=== PATIENT | female | born 1935 | race Asian ===

== ENCOUNTER 2019-10-30 19:14 | Inpatient (IN) | payer OTHER, MEDICAID ==
[~2019-10-30] VITALS: Ht 162.6 cm; Wt 51.3 kg
[2019-10-30] MEDS ORDERED: Ipratropium 0.02% Inh Soln 2.5ml UD HHN ONE (19:30)
[2019-10-30] MEDS ORDERED: Albuterol ud Inhalation HHN ONE (19:30)
--- NOTE | 2019-10-30 19:45 | NUR ---
ED Nurse Note: Recieved pt BIBA from home, here with c/o weakness x 3 days, pt now with loss of appetite and becoming weaker per family, pt is awake and oriented x 4, denies pain, pt assisted with gowning and placed on cardiac monitoring, IV line placed also and labs drawn, will resume care as ordered and continue to closely monitor.
--- NOTE | 2019-10-30 19:55 | Emergency Room Report ---
History of Present Illness General Chief Complaint: Generalized Weakness Source: Family Member, EMS Present Illness HPI Patient from home with upper respiratory symptoms. Patient transported by BLS. Oxygen saturation was low in the field. Family states that the patient began having a cough only Thursday. Yesterday she was up and ambulatory but today she is not been ambulatory and had weakness with decreased oral intake. They did not notice any fever. She has not produced any phlegm. Family denies vomiting or diarrhea. Patient has Alzheimer's and no further review of systems obtainable. History of hypertension. She usually is treated at [facility]. Allergies: Coded Allergies: No Known Allergies (Unverified , 03/14/12) Patient History Limited by: medical condition Past Medical History: see triage record Social History: Denies: smoking, alcohol use, drug use Social History Narrative At home with family Reviewed Nursing Documentation: PMH: Agreed; PSxH: Agreed Nursing Documentation-PMH Hx Hypertension: Yes Review of Systems All Other Systems: limited Physical Exam Vital Signs Date Time Temp Pulse Resp B/P (MAP) Pulse Ox O2 Delivery O2 Flow Rate FiO2 10/30/19 19:08 98.6 110 18 114/53 (73) 98 Room Air Sp02 EP Interpretation: reviewed, normal General Appearance: no apparent distress, alert, thin, other - Nonverbal, Chronically Ill Head: normocephalic Eyes: bilateral eye normal inspection, bilateral eye PERRL ENT: dry mucus membranes Neck: supple, no meningismus Respiratory: crackles, rales - Right lung Cardiovascular #1: no edema, tachycardia Cardiovascular #2: 2+ radial (L) Gastrointestinal: normal inspection, non tender, no mass, non-distended, decreased bowel sounds Genitourinary: no CVA tenderness Musculoskeletal: back normal, no calf tenderness Neurologic: alert, sensory intact, motor weakness - Diffuse, other - Nonverbal Psychiatric: depressed affect Skin: no rash, warm/dry Medical Decision Making Diagnostic Impression: Primary Impression: Right lower lobe pneumonia Qualified Codes: J18.9 - Pneumonia, unspecified organism Additional Impressions: Right upper lobe pneumonia Qualified Codes: J18.9 - Pneumonia, unspecified organism Pleural effusion, left Elevated troponin ER Course Patient presents with cough and weakness with decreased appetite. Differential includes pneumonia, influenza, orchitis, acute myocardial infarction amongst others. Patient appears dehydrated. Evaluation also needs to include sepsis. Evaluation with EKG, chest x-ray and labs. Treatment with IV hydration. Patient placed on a radiation monitor. X-ray with right infiltrate and left effusion. Blood cultures have been ordered and antibiotics ordered also 1954 SEPSIS RE-EVALUATION: Evaded troponin and minimally elevated lactic acid. Patient mentation unchanged. No hypotension. Heart rate 93 blood pressure 95. Oxygen saturation 93%. Fluid bolus and antibiotics is been ordered. Discussed with family. I, Riky Garnica MD, Performed the Sepsis Re-evaluation at 21:16. Rest of 30 ml/kg bolus ordered. Discussed with family in detail. Patient mentation unchanged. No respiratory distress. Patient admitted to telemetry. Discussed with family seriousness of illness. Laboratory Tests Test 10/30/19 20:15 White Blood Count 2.6 K/UL (4.8-10.8) L Red Blood Count 4.35 M/UL (4.20-5.40) Hemoglobin 13.7 G/DL (12.0-16.0) Hematocrit 39.5 % (37.0-47.0) Mean Corpuscular Volume 91 FL (80-99) Mean Corpuscular Hemoglobin 31.6 PG (27.0-31.0) H Mean Corpuscular Hemoglobin Concent 34.8 G/DL (32.0-36.0) Red Cell Distribution Width 10.8 % (11.6-14.8) L Platelet Count 199 K/UL (150-450) Mean Platelet Volume 5.5 FL (6.5-10.1) L Neutrophils (%) (Auto) % (45.0-75.0) Lymphocytes (%) (Auto) % (20.0-45.0) Monocytes (%) (Auto) % (1.0-10.0) Eosinophils (%) (Auto) % (0.0-3.0) Basophils (%) (Auto) % (0.0-2.0) Differential Total Cells Counted 100 Neutrophils % (Manual) 70 % (45-75) Lymphocytes % (Manual) 26 % (20-45) Monocytes % (Manual) 4 % (1-10) Eosinophils % (Manual) 0 % (0-3) Basophils % (Manual) 0 % (0-2) Band Neutrophils 0 % (0-8) Platelet Estimate Adequate Platelet Morphology Normal Prothrombin Time 10.0 SEC (9.30-11.50) Prothrombin Time INR 0.9 (0.9-1.1) Sodium Level 136 MMOL/L (136-145) Potassium Level 3.3 MMOL/L (3.5-5.1) L Chloride Level 100 MMOL/L (98-107) Carbon Dioxide Level 26 MMOL/L (21-32) Anion Gap 10 mmol/L (5-15) Blood Urea Nitrogen 30 mg/dL (7-18) H Creatinine 1.1 MG/DL (0.55-1.30) Estimate Glomerular Filtration Rate mL/min (>60) Glucose Level 152 MG/DL (74-106) H Lactic Acid Level 2.60 mmol/L (0.4-2.0) H Calcium Level 9.4 MG/DL (8.5-10.1) Total Bilirubin 0.7 MG/DL (0.2-1.0) Aspartate Amino Transferase (AST) 37 U/L (15-37) Alanine Aminotransferase (ALT) 21 U/L (12-78) Alkaline Phosphatase 65 U/L (46-116) Total Creatine Kinase 596 U/L (26-308) H Troponin I 0.074 ng/mL (0.000-0.056) Pro-B-Type Natriuretic Peptide 742 pg/mL (0-125) H Total Protein 7.2 G/DL (6.4-8.2) Albumin 3.0 G/DL (3.4-5.0) L Globulin 4.2 g/dL Albumin/Globulin Ratio 0.7 (1.0-2.7) L Lipase 47 U/L (73-393) L EKG Diagnostic Results Rate: normal Rhythm: NSR ST Segments: no acute changes ASA given to the pt in ED: Yes Rhythm Strip Diag. Results EP Interpretation: yes Rhythm: NSR, no PVC's, no ectopy Chest X-Ray Diagnostic Results Chest X-Ray Diagnostic Results : Chest X-Ray Ordered: Yes # of Views/Limited/Complete: 1 View Indication: Other EP Interpretation: Yes Interpretation: no pneumothorax, other - Right lung infiltrates upper and lower lobe, left effusion Impression: Other Electronically Signed by: Electronically signed by Riky Garnica MD Last Vital Signs Date Time Temp Pulse Resp B/P (MAP) Pulse Ox O2 Delivery O2 Flow Rate FiO2 10/30/19 20:15 97 27 98 21 89 22 91 10/30/19 19:08 98.6 114/53 (73) Room Air Status: improved Disposition: ADMITTED INPATIENT Condition: Serious Riky Garnica MD Oct 30, 2019 19:55
[2019-10-30] MEDS ORDERED: Piperacillin/Tazobactam 3.375 GM in NS 110 ML IVPB ONE (20:00)
[2019-10-30] MEDS ORDERED: Azithromycin 500 MG in D5W 275 ML IVPB ONE (20:00)
[2019-10-30 20:30] VITALS: BP 119/54
[2019-10-30 20:52] LABS: HEMATOCRIT 39.5 % (37.0-47.0); HEMOGLOBIN 13.7 G/DL (12.0-16.0); MEAN CORPUSCULAR VOLUME 91 FL (80-99); PLATELET COUNT 199 K/UL (150-450); RED BLOOD COUNT 4.35 M/UL (4.20-5.40); RED CELL DISTRIBUTION WIDTH 10.8 % (11.6-14.8); WHITE BLOOD COUNT 2.6 K/UL (4.8-10.8)
[2019-10-30 20:55] LABS: INR 0.9 (0.9-1.1)
[2019-10-30 20:57] LABS: ANION GAP 10 mmol/L (5-15); BLOOD UREA NITROGEN 30 mg/dL (7-18); CALCIUM 9.4 MG/DL (8.5-10.1); CARBON DIOXIDE 26 MMOL/L (21-32); CHLORIDE 100 MMOL/L (98-107); CREATININE 1.1 MG/DL (0.55-1.30); POTASSIUM 3.3 MMOL/L (3.5-5.1); SODIUM 136 MMOL/L (136-145)
[2019-10-30 21:09] LABS: ALANINE AMINOTRANSFERASE 21 U/L (12-78); ALBUMIN/GLOBULIN RATIO 0.7 (1.0-2.7); ALKALINE PHOSPHATASE 65 U/L (46-116); ASPARTATE AMINO TRANSFERASE 37 U/L (15-37); BILIRUBIN,TOTAL 0.7 MG/DL (0.2-1.0); CREATINE KINASE 596 U/L (26-308)
--- NOTE | 2019-10-30 22:00 | NUR ---
ED Nurse Note: Pt continues to rest quietly on gurney, awake and alert, recieving IV fluids and ABX as ordered, no s/s of adverse reaction noted and pt is tolerating well, pt denies pain, no cp, no sob or labored breathing, family at bedside, skin is intact as noted assisting pt with bedpan use, will continue to monitor and resume care as ordered.
[2019-10-30 22:40] VITALS: BP 123/48
[2019-10-30] MEDS ORDERED: Acetaminophen 650 MG SUPP RECTAL PRN ×2 (22:45)
[2019-10-30] MEDS ORDERED: Miralax 17gm pkt ORAL PRN (22:45)
[2019-10-30] MEDS ORDERED: Albuterol/Ipratropium 3ml neb HHN PRN (22:45)
[2019-10-31] VITALS (7 sets, daily range): BP systolic 124–144; BP diastolic 46–71
--- NOTE | 2019-10-31 | NUR ---
ED Nurse Note: Pt resting quietly, no changes or increased distress, will continue to closely monitor.
[2019-10-31 02:22] LABS: APPEARANCE,URINE CLEAR; BILIRUBIN, URINE NEGATIVE (NEGATIVE); COLOR,URINE PALE YELLOW; GLUCOSE, URINE (UA) NEGATIVE (NEGATIVE); KETONES,URINE NEGATIVE (NEGATIVE); LEUKOCYTE ESTERASE ,URINE NEGATIVE (NEGATIVE); NITRITE,URINE POSITIVE (NEGATIVE); PH,URINE 5 (4.5-8.0); PROTEIN,URINE 2+ (NEGATIVE); UROBILINOGEN,URINE NORMAL MG/DL (0.0-1.0)
--- NOTE | 2019-10-31 03:00 | NUR ---
ED Nurse Note: Pt sleeping, on monitoring, o2 sat=98%, no sob or labored breathing, IV site patent, no changes or distress noted.
--- NOTE | 2019-10-31 07:00 | NUR ---
ED Nurse Note:. Pt continues to rest quietly, no changes or distress noted, IV site patent, on monitoring, shift report given to oncoming nurse, nad noted.
--- NOTE | 2019-10-31 07:05 | NUR ---
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
--- NOTE | 2019-10-31 08:49 | History and Physical ---
History of Present Illness General Date patient seen: Oct 31, 2019 Reason for Hospitalization: Generalized Weakness Present Illness HPI Patient is a 84-year-old female with history of Alzheimer's dementia, lives at home with her children who who was brought in for upper respiratory symptoms by BLS. Reportedly low oxygen saturations in the field. Patient is a poor historian most information was obtained from review of medical chart, ED physician notes, and in speaking with her daughter Charleen. Per family member patient was exposed to sick family members who had cough and fevers 3 to 4 days prior to admission. Per daughter patient started having a cough 2 days prior to admission. Got progressively weaker, nonambulatory and with reduced oral intake. Patient has a walker and wheelchair at home however safety has become an issue where they are going to install bed rails so she does not fall from her bed. Family denies any fever at home. No phlegm. Patient did not complain of any abdominal pain, nausea or vomiting. Family states that the patient began having a cough only Thursday. Yesterday she was up and ambulatory but today she is not been ambulatory and had weakness with decreased oral intake. They did not notice any fever. She has not produced any phlegm. Past medical and surgical history: Hypertension and Alzheimer's Social history: Lives with children, no history of alcohol smoking or illicit drug use Family history: Unable to obtain PCP: Dr. Elvis Vidales at [facility] ROS: Unable to obtain due to mental status ED course: EKG, chest x-ray and labs. Treatment with IV hydration. Patient placed on a service captain. X-ray with right infiltrate and rib fractures. Blood cultures ordered and antibiotics ordered SEPSIS RE-EVALUATION: Evaded troponin and minimally elevated lactic acid. Patient mentation unchanged. No hypotension.. Oxygen saturation 93%. Fluid bolus and antibiotics ordered. Sepsis Re-evaluation at 21:16. Rest of 30 ml/kg bolus ordered. Allergies: Coded Allergies: No Known Allergies (Unverified , 03/14/12) Medication History Unable to Obtain Active Prescriptions or Reported Meds Patient History Healthcare decision maker Resuscitation status Advanced Directive on File Review of Systems ROS Narrative limited due to dementia Physical Exam Physical Exam Narrative General Appearance: no apparent distress, alert, thin Head: normocephalic Eyes: bilateral eye normal inspection, bilateral eye PERRL ENT: dry mucus membranes Neck: supple, no meningismus Respiratory: crackles, rales - Right lung Cardiovascular: no edema, tachycardia, no m/r/g Gastrointestinal: normal inspection, non tender, no mass, non-distended, decreased bowel sounds Genitourinary: no CVA tenderness Musculoskeletal: back normal, no calf tenderness Neurologic: alert and oriented to self only, sensory intact, motor weakness - Diffuse Psychiatric: depressed affect Skin: no rash, warm/dry Last 24 Hour Vital Signs Date Time Temp Pulse Resp B/P (MAP) Pulse Ox O2 Delivery O2 Flow Rate FiO2 10/31/19 00:00 98.3 88 18 126/46 98 Room Air 21 10/30/19 22:40 98.6 83 21 123/48 96 Room Air 21 10/30/19 20:30 98.6 91 24 119/54 98 Room Air 21 10/30/19 20:15 97 27 98 21 89 22 91 10/30/19 19:35 110 18 Room Air 10/30/19 19:08 98.6 110 18 114/53 (73) 98 Room Air Laboratory Tests Test 10/30/19 20:15 10/31/19 00:45 10/31/19 01:40 White Blood Count 2.6 K/UL (4.8-10.8) L Red Blood Count 4.35 M/UL (4.20-5.40) Hemoglobin 13.7 G/DL (12.0-16.0) Hematocrit 39.5 % (37.0-47.0) Mean Corpuscular Volume 91 FL (80-99) Mean Corpuscular Hemoglobin 31.6 PG (27.0-31.0) H Mean Corpuscular Hemoglobin Concent 34.8 G/DL (32.0-36.0) Red Cell Distribution Width 10.8 % (11.6-14.8) L Platelet Count 199 K/UL (150-450) Mean Platelet Volume 5.5 FL (6.5-10.1) L Neutrophils (%) (Auto) % (45.0-75.0) Lymphocytes (%) (Auto) % (20.0-45.0) Monocytes (%) (Auto) % (1.0-10.0) Eosinophils (%) (Auto) % (0.0-3.0) Basophils (%) (Auto) % (0.0-2.0) Differential Total Cells Counted 100 Neutrophils % (Manual) 70 % (45-75) Lymphocytes % (Manual) 26 % (20-45) Monocytes % (Manual) 4 % (1-10) Eosinophils % (Manual) 0 % (0-3) Basophils % (Manual) 0 % (0-2) Band Neutrophils 0 % (0-8) Platelet Estimate Adequate Platelet Morphology Normal Prothrombin Time 10.0 SEC (9.30-11.50) Prothromb Time International Ratio 0.9 (0.9-1.1) Sodium Level 136 MMOL/L (136-145) Potassium Level 3.3 MMOL/L (3.5-5.1) L Chloride Level 100 MMOL/L (98-107) Carbon Dioxide Level 26 MMOL/L (21-32) Anion Gap 10 mmol/L (5-15) Blood Urea Nitrogen 30 mg/dL (7-18) H Creatinine 1.1 MG/DL (0.55-1.30) Estimat Glomerular Filtration Rate mL/min (>60) Glucose Level 152 MG/DL (74-106) H Lactic Acid Level 2.60 mmol/L (0.4-2.0) H 2.30 mmol/L (0.66-2.22) H Calcium Level 9.4 MG/DL (8.5-10.1) Total Bilirubin 0.7 MG/DL (0.2-1.0) Aspartate Amino Transf (AST/SGOT) 37 U/L (15-37) Alanine Aminotransferase (ALT/SGPT) 21 U/L (12-78) Alkaline Phosphatase 65 U/L (46-116) Total Creatine Kinase 596 U/L (26-308) H Troponin I 0.074 ng/mL (0.000-0.056) Pro-B-Type Natriuretic Peptide 742 pg/mL (0-125) H Total Protein 7.2 G/DL (6.4-8.2) Albumin 3.0 G/DL (3.4-5.0) L Globulin 4.2 g/dL Albumin/Globulin Ratio 0.7 (1.0-2.7) L Lipase 47 U/L (73-393) L Urine Color Pale yellow Urine Appearance Clear Urine pH 5 (4.5-8.0) Urine Specific [place] 1.015 (1.005-1.035) Urine Protein 2+ (NEGATIVE) H Urine Glucose (UA) Negative (NEGATIVE) Urine Ketones Negative (NEGATIVE) Urine Blood 2+ (NEGATIVE) H Urine Nitrite Positive (NEGATIVE) H Urine Bilirubin Negative (NEGATIVE) Urine Urobilinogen Normal MG/DL (0.0-1.0) Urine Leukocyte Esterase Negative (NEGATIVE) Urine RBC 2-4 /HPF (0 - 2) H Urine WBC 0-2 /HPF (0 - 2) Urine Squamous Epithelial Cells Moderate /LPF (NONE/OCC) H Urine Bacteria Few /HPF (NONE) Height (Feet): 5 Height (Inches): 4.00 Weight (Pounds): 150 Medications Current Medications Medications (Trade) Dose Ordered Sig/Khang Route PRN Reason Start Time Stop Time Status Last Admin Dose Admin Acetaminophen (Tylenol) 650 mg Q4H PRN ORAL Mild Pain (Pain Scale 1-3) 10/30/19 22:45 11/29/19 22:44 Acetaminophen (Tylenol) 650 mg Q4H PRN ORAL fever 10/30/19 22:45 11/29/19 22:44 Acetaminophen (Tylenol) 650 mg Q4H PRN RECTAL Mild Pain (Pain Scale 1-3) 10/30/19 22:45 11/29/19 22:44 Acetaminophen (Tylenol) 650 mg Q4H PRN RECTAL fever 10/30/19 22:45 11/29/19 22:44 Albuterol/ Ipratropium (Albuterol/ Ipratropium) 3 ml EVERY 6 HOURS PRN HHN Shortness of Breath 10/30/19 22:45 11/04/19 22:44 Azithromycin 500 mg/Sodium Chloride 275 ml @ 275 mls/hr DAILY IV 10/31/19 09:00 11/07/19 08:59 UNV Ceftriaxone Sodium 1 gm/ Sodium Chloride 55 ml @ 110 mls/hr Q24HRS IVPB 10/31/19 09:00 11/07/19 08:59 Dextrose (Dextrose 50%) 25 ml Q30M PRN IV Hypoglycemia 10/30/19 22:45 11/29/19 22:44 Dextrose (Dextrose 50%) 50 ml Q30M PRN IV Hypoglycemia 10/30/19 22:45 11/29/19 22:44 Docusate Sodium (Colace) 100 mg EVERY 12 HOURS ORAL 10/31/19 09:00 11/30/19 08:59 Heparin Sodium (Porcine) (Heparin 5000 units/ml) 5,000 units EVERY 12 HOURS SUBQ 10/31/19 09:00 11/30/19 08:59 Ondansetron HCl (Zofran) 4 mg Q6H PRN IVP Nausea & Vomiting 10/30/19 22:45 11/29/19 22:44 Polyethylene Glycol (Miralax) 17 gm DAILYPRN PRN ORAL Constipation 10/30/19 22:45 11/29/19 22:44 Sodium Chloride 1,000 ml @ 300 mls/hr Q3H20M IV 10/30/19 19:30 11/29/19 19:29 10/31/19 01:18 Objective Narrative EKG is personally interpreted by me: Normal sinus rhythm, no acute ST-T changes Chest x-ray as interpreted by radiology: Right lung pneumonia and multiple rib fractures. Could also be right lung contusion. Assessment/Plan Problem List: (1) Sepsis ICD Codes: A41.9 - Sepsis, unspecified organism SNOMED: 41982747 (2) Pneumonia involving right lung ICD Codes: J18.9 - Pneumonia, unspecified organism SNOMED: 717774782 (3) Rhabdomyolysis ICD Codes: M62.82 - Rhabdomyolysis SNOMED: 724776445 (4) Ribs, multiple fractures ICD Codes: S22.49XA - Multiple fractures of ribs, unspecified side, initial encounter for closed fracture SNOMED: 7148996 (5) VIOLET (acute kidney injury) ICD Codes: N17.9 - Acute kidney failure, unspecified SNOMED: 3368259, 64081122 (6) Leukopenia ICD Codes: D72.819 - Decreased white blood cell count, unspecified SNOMED: 60136664, 256630201 (7) Hypokalemia ICD Codes: E87.6 - Hypokalemia SNOMED: 45970238 (8) Elevated troponin ICD Codes: R79.89 - Other specified abnormal findings of blood chemistry SNOMED: 889526397, 992815158, 924311164 Status: stable Assessment/Plan: 84-year-old female with history of Alzheimer's dementia presents from home with cough and respiratory illness. She was found to have sepsis secondary to community-acquired pneumonia versus UTI, although UA is not impressive. #Sepsis secondary to immune acquired pneumonia versus UTI Admit to telemetry IV ceftriaxone, azithromycin, add Flagyl for anaerobic coverage IV NS at 100 mL/h Obtain nasal swab to rule out influenza A/B Follow-up blood cultures Tylenol for fever ID consult, recs appreciated Pulmonary consult with Dr. Eddie Cardoso #VIOLET, prerenal azotemia Monitor renal function after hydration, avoid nephrotoxic medications. Renal consult if creatinine does not improve #Mild rhabdomyolysis Continue IV hydration. Trend CK #Elevated troponin, no reported chest pain no acute ST-T changes on EKG. Likely demand ischemia Continue aspirin Hold beta-blockers due to borderline BP Cardiology consult, Dr. nair #Hypokalemia Placed on potassium #Multiple rib fractures Pain control VTE prophylaxis: Heparin subcu GI prophylaxis: None indicated CODE STATUS: Full code. This was discussed at length with daughter on the phone. Basically they would want her mom to be full code, attempt resuscitation however if she would not have a meaningful chance of survival to withdraw care. She will come in and fill out a POLST I spent 72 minutes on this encounter. Greater than 50% spent on counseling care portion. Plan of care discussed with consultants, RN and patient's daughter Mojgan. Time of note may not reflect time of encounter Moy St M.D. Oct 31, 2019 08:49
[2019-10-31] MEDS: cefTRIAXone 1 GM in NS 55 ML IVPB SCH (09:32)
[2019-10-31] MEDS: Heparin 5000 units/ml inj SUBQ SCH ×2 (09:36→21:07)
[2019-10-31] MEDS: Docusate 100mg cap ORAL SCH ×2 (09:38→21:06)
--- NOTE | 2019-10-31 11:48 | NUR ---
ED Nurse Note: Report given to Jonnathan BANSAL
--- NOTE | 2019-10-31 11:58 | Diagnostic Imaging Report ---
Indication: Cough Comparison: 03/15/2012 A single view chest radiograph was obtained. Findings: Patchy infiltrates noted in the right lung. Heart is enlarged. There is a suggestion of multiple rib fractures on the right. Please correlate clinically. Aorta is moderately calcified and ectatic. Bones are osteoporotic. IMPRESSION: Suspected right pulmonary infiltrate. Lung contusion is also in the differential if there is been recent trauma. Multiple rib fractures on the right, age-indeterminate on this examination. Cardiomegaly Atherosclerotic vascular disease
--- NOTE | 2019-10-31 12:30 | NUR ---
NURSE NOTES: The patient is lying on the bed without acute distress or shortness of breath. The patient's belongings checked with the patient and signed by two nurses. Medical, surgical, allergy, and social history taken from the patient and son at the bedside. Admitting EKG strip obtained from ER. The patient denies of routine medication intake. Per patient and son, the patient does not have POLST or advance directive. The patient's bed in the lowest position, call light in reach, and fall and aspiration precaution reinforced. IV site intact and patent. The patient's skin is intact. Initial vital signs taken and reported to the primary physician. Will obtain admission order from the primary physician. Will continue plan of care.
[2019-10-31 13:11] LABS: BASOPHILS % (AUTO) 0.5 % (0.0-2.0); HEMATOCRIT 36.1 % (37.0-47.0); HEMOGLOBIN 12.6 G/DL (12.0-16.0); LYMPHOCYTES % (AUTO) 11.3 % (20.0-45.0); MEAN CORPUSCULAR VOLUME 92 FL (80-99); MONOCYTES % (AUTO) 3.3 % (1.0-10.0); NEUTROPHILS % (AUTO) 84.8 % (45.0-75.0); PLATELET COUNT 188 K/UL (150-450); RED BLOOD COUNT 3.91 M/UL (4.20-5.40); RED CELL DISTRIBUTION WIDTH 11.2 % (11.6-14.8); WHITE BLOOD COUNT 9.5 K/UL (4.8-10.8)
[2019-10-31] MEDS ORDERED: Hydromorphone 0.5mg/0.5ml inj IVP PRN (13:30)
[2019-10-31] MEDS ORDERED: HYDROmorphone 1mg/NS 50ml IVPB 50 ML IVPB PRN (13:30)
[2019-10-31] MEDS ORDERED: Ipratropium 0.02% Inh Soln 2.5ml UD HHN PRN (13:30)
--- NOTE | 2019-10-31 13:30 | NUR ---
NURSE NOTES: Notified Dr. St regarding abnormal lab including potassium, urinalysis, lactic acid, and elevated CK level. Will continue plan of care. Notified Dr. Fraga regarding elevated and uptrend of Troponin from 0.[address] Fraga ordered medication for control. Will closely monitor the patient.
[2019-10-31 13:36] LABS: ANION GAP 6 mmol/L (5-15); BLOOD UREA NITROGEN 14 mg/dL (7-18); CARBON DIOXIDE 28 MMOL/L (21-32); CHLORIDE 109 MMOL/L (98-107); CREATININE 0.7 MG/DL (0.55-1.30); POTASSIUM 3.4 MMOL/L (3.5-5.1); SODIUM 143 MMOL/L (136-145)
--- NOTE | 2019-10-31 13:41 | Infectious Diseases Prog Note ---
Assessment/Plan Assessment/Plan Full consult dictated: A) 1) cap, sepsis, elevated lactic acid, leukopenia 2) pmh noted 3) allergies - nkda P) 1) rocephin, flagyl, azithromycin 2) check cultures, labs and chest x-ray 3) will f/u 4) thank you Subjective Allergies: Coded Allergies: No Known Allergies (Unverified , 03/14/12) Objective Vital Signs Last 24 Hour Vital Signs Date Time Temp Pulse Resp B/P (MAP) Pulse Ox O2 Delivery O2 Flow Rate FiO2 10/31/19 12:33 Room Air 10/31/19 11:10 98.0 87 20 128/71 98 Nasal Cannula 10/31/19 09:15 98.2 83 18 124/68 97 Nasal Cannula 10/31/19 07:20 98.2 84 19 127/64 97 Nasal Cannula 10/31/19 00:00 98.3 88 18 126/46 98 Room Air 21 10/30/19 22:40 98.6 83 21 123/48 96 Room Air 21 10/30/19 20:30 98.6 91 24 119/54 98 Room Air 21 10/30/19 20:15 97 27 98 21 89 22 91 10/30/19 19:35 110 18 Room Air 10/30/19 19:08 98.6 110 18 114/53 (73) 98 Room Air Height (Feet): 5 Height (Inches): 4.00 Weight (Pounds): 150 Laboratory Tests Test 10/30/19 20:15 10/31/19 00:45 10/31/19 01:40 10/31/19 12:55 White Blood Count 2.6 K/UL (4.8-10.8) L 9.5 K/UL (4.8-10.8) # Red Blood Count 4.35 M/UL (4.20-5.40) 3.91 M/UL (4.20-5.40) L Hemoglobin 13.7 G/DL (12.0-16.0) 12.6 G/DL (12.0-16.0) Hematocrit 39.5 % (37.0-47.0) 36.1 % (37.0-47.0) L Mean Corpuscular Volume 91 FL (80-99) 92 FL (80-99) Mean Corpuscular Hemoglobin 31.6 PG (27.0-31.0) H 32.3 PG (27.0-31.0) H Mean Corpuscular Hemoglobin Concent 34.8 G/DL (32.0-36.0) 35.0 G/DL (32.0-36.0) Red Cell Distribution Width 10.8 % (11.6-14.8) L 11.2 % (11.6-14.8) L Platelet Count 199 K/UL (150-450) 188 K/UL (150-450) Mean Platelet Volume 5.5 FL (6.5-10.1) L 5.8 FL (6.5-10.1) L Neutrophils (%) (Auto) % (45.0-75.0) 84.8 % (45.0-75.0) H Lymphocytes (%) (Auto) % (20.0-45.0) 11.3 % (20.0-45.0) L Monocytes (%) (Auto) % (1.0-10.0) 3.3 % (1.0-10.0) Eosinophils (%) (Auto) % (0.0-3.0) 0.0 % (0.0-3.0) Basophils (%) (Auto) % (0.0-2.0) 0.5 % (0.0-2.0) Differential Total Cells Counted 100 Neutrophils % (Manual) 70 % (45-75) Lymphocytes % (Manual) 26 % (20-45) Monocytes % (Manual) 4 % (1-10) Eosinophils % (Manual) 0 % (0-3) Basophils % (Manual) 0 % (0-2) Band Neutrophils 0 % (0-8) Platelet Estimate Adequate Platelet Morphology Normal Prothrombin Time 10.0 SEC (9.30-11.50) Prothromb Time International Ratio 0.9 (0.9-1.1) Sodium Level 136 MMOL/L (136-145) Pending Potassium Level 3.3 MMOL/L (3.5-5.1) L Pending Chloride Level 100 MMOL/L (98-107) Pending Carbon Dioxide Level 26 MMOL/L (21-32) Pending Anion Gap 10 mmol/L (5-15) Blood Urea Nitrogen 30 mg/dL (7-18) H Pending Creatinine 1.1 MG/DL (0.55-1.30) Pending Estimat Glomerular Filtration Rate mL/min (>60) Pending Glucose Level 152 MG/DL (74-106) H Pending Lactic Acid Level 2.60 mmol/L (0.4-2.0) H 2.30 mmol/L (0.66-2.22) H Pending Calcium Level 9.4 MG/DL (8.5-10.1) Pending Total Bilirubin 0.7 MG/DL (0.2-1.0) Aspartate Amino Transf (AST/SGOT) 37 U/L (15-37) Alanine Aminotransferase (ALT/SGPT) 21 U/L (12-78) Alkaline Phosphatase 65 U/L (46-116) Total Creatine Kinase 596 U/L (26-308) H Troponin I 0.074 ng/mL (0.000-0.056) Pending Pro-B-Type Natriuretic Peptide 742 pg/mL (0-125) H Total Protein 7.2 G/DL (6.4-8.2) Albumin 3.0 G/DL (3.4-5.0) L Globulin 4.2 g/dL Albumin/Globulin Ratio 0.7 (1.0-2.7) L Lipase 47 U/L (73-393) L Urine Color Pale yellow Urine Appearance Clear Urine pH 5 (4.5-8.0) Urine Specific [place] 1.015 (1.005-1.035) Urine Protein 2+ (NEGATIVE) H Urine Glucose (UA) Negative (NEGATIVE) Urine Ketones Negative (NEGATIVE) Urine Blood 2+ (NEGATIVE) H Urine Nitrite Positive (NEGATIVE) H Urine Bilirubin Negative (NEGATIVE) Urine Urobilinogen Normal MG/DL (0.0-1.0) Urine Leukocyte Esterase Negative (NEGATIVE) Urine RBC 2-4 /HPF (0 - 2) H Urine WBC 0-2 /HPF (0 - 2) Urine Squamous Epithelial Cells Moderate /LPF (NONE/OCC) H Urine Bacteria Few /HPF (NONE) Magnesium Level Pending Current Medications Medications (Trade) Dose Ordered Sig/Khang Route PRN Reason Start Time Stop Time Status Last Admin Dose Admin Acetaminophen (Tylenol) 650 mg Q4H PRN ORAL Mild Pain (Pain Scale 1-3) 10/30/19 22:45 11/29/19 22:44 Acetaminophen (Tylenol) 650 mg Q4H PRN ORAL fever 10/30/19 22:45 11/29/19 22:44 Acetaminophen (Tylenol) 650 mg Q4H PRN RECTAL Mild Pain (Pain Scale 1-3) 10/30/19 22:45 11/29/19 22:44 Acetaminophen (Tylenol) 650 mg Q4H PRN RECTAL fever 10/30/19 22:45 11/29/19 22:44 Azithromycin 500 mg/Sodium Chloride 275 ml @ 275 mls/hr Q24H IV 10/31/19 23:00 11/07/19 22:59 Ceftriaxone Sodium 1 gm/ Sodium Chloride 55 ml @ 110 mls/hr Q24HRS IVPB 10/31/19 09:00 11/07/19 08:59 10/31/19 09:32 Dextrose (Dextrose 50%) 25 ml Q30M PRN IV Hypoglycemia 10/30/19 22:45 11/29/19 22:44 Dextrose (Dextrose 50%) 25 ml Q30M PRN IV Hypoglycemia 10/31/19 13:30 11/30/19 13:29 UNV Dextrose (Dextrose 50%) 50 ml Q30M PRN IV Hypoglycemia 10/30/19 22:45 11/29/19 22:44 Dextrose (Dextrose 50%) 50 ml Q30M PRN IV Hypoglycemia 10/31/19 13:30 11/30/19 13:29 UNV Docusate Sodium (Colace) 100 mg EVERY 12 HOURS ORAL 10/31/19 09:00 11/30/19 08:59 10/31/19 09:38 Heparin Sodium (Porcine) (Heparin 5000 units/ml) 5,000 units EVERY 12 HOURS SUBQ 10/31/19 09:00 11/30/19 08:59 10/31/19 09:36 Hydromorphone HCl (Dilaudid) 0.5 mg Q4HR PRN IVP For Pain moderate 4-6 10/31/19 13:30 11/07/19 13:29 UNV Ipratropium [place] (Atrovent) 0.5 mcg Q4HR PRN HHN Shortness of Breath 10/31/19 13:30 11/05/19 13:29 UNV Metronidazole 100 ml @ 100 mls/hr Q8HR IVPB 10/31/19 14:00 11/07/19 13:59 UNV Ondansetron HCl (Zofran) 4 mg Q6H PRN IVP Nausea & Vomiting 10/30/19 22:45 11/29/19 22:44 Polyethylene Glycol (Miralax) 17 gm DAILYPRN PRN ORAL Constipation 10/30/19 22:45 11/29/19 22:44 Sodium Chloride 1,000 ml @ 100 mls/hr Q10H IV 10/31/19 13:30 11/30/19 13:29 UNV Susana Lawrence MD Oct 31, 2019 13:41
--- NOTE | 2019-10-31 14:08 | NUR ---
*-* INSURANCE *-* ALL AVAILABLE CLINICALS [phone] fax#[phone]
--- NOTE | 2019-10-31 14:11 | Cardiac Electrophysiology PN ---
Subjective Subjective [id number] Objective Last 24 Hour Vital Signs Date Time Temp Pulse Resp B/P (MAP) Pulse Ox O2 Delivery O2 Flow Rate FiO2 10/31/19 12:33 Room Air 10/31/19 11:10 98.0 87 20 128/71 98 Nasal Cannula 10/31/19 09:15 98.2 83 18 124/68 97 Nasal Cannula 10/31/19 07:20 98.2 84 19 127/64 97 Nasal Cannula 10/31/19 00:00 98.3 88 18 126/46 98 Room Air 21 10/30/19 22:40 98.6 83 21 123/48 96 Room Air 21 10/30/19 20:30 98.6 91 24 119/54 98 Room Air 21 10/30/19 20:15 97 27 98 21 89 22 91 10/30/19 19:35 110 18 Room Air 10/30/19 19:08 98.6 110 18 114/53 (73) 98 Room Air Laboratory Tests Test 10/30/19 20:15 10/31/19 00:45 10/31/19 01:40 10/31/19 12:55 White Blood Count 2.6 K/UL (4.8-10.8) L 9.5 K/UL (4.8-10.8) # Red Blood Count 4.35 M/UL (4.20-5.40) 3.91 M/UL (4.20-5.40) L Hemoglobin 13.7 G/DL (12.0-16.0) 12.6 G/DL (12.0-16.0) Hematocrit 39.5 % (37.0-47.0) 36.1 % (37.0-47.0) L Mean Corpuscular Volume 91 FL (80-99) 92 FL (80-99) Mean Corpuscular Hemoglobin 31.6 PG (27.0-31.0) H 32.3 PG (27.0-31.0) H Mean Corpuscular Hemoglobin Concent 34.8 G/DL (32.0-36.0) 35.0 G/DL (32.0-36.0) Red Cell Distribution Width 10.8 % (11.6-14.8) L 11.2 % (11.6-14.8) L Platelet Count 199 K/UL (150-450) 188 K/UL (150-450) Mean Platelet Volume 5.5 FL (6.5-10.1) L 5.8 FL (6.5-10.1) L Neutrophils (%) (Auto) % (45.0-75.0) 84.8 % (45.0-75.0) H Lymphocytes (%) (Auto) % (20.0-45.0) 11.3 % (20.0-45.0) L Monocytes (%) (Auto) % (1.0-10.0) 3.3 % (1.0-10.0) Eosinophils (%) (Auto) % (0.0-3.0) 0.0 % (0.0-3.0) Basophils (%) (Auto) % (0.0-2.0) 0.5 % (0.0-2.0) Differential Total Cells Counted 100 Neutrophils % (Manual) 70 % (45-75) Lymphocytes % (Manual) 26 % (20-45) Monocytes % (Manual) 4 % (1-10) Eosinophils % (Manual) 0 % (0-3) Basophils % (Manual) 0 % (0-2) Band Neutrophils 0 % (0-8) Platelet Estimate Adequate Platelet Morphology Normal Prothrombin Time 10.0 SEC (9.30-11.50) Prothromb Time International Ratio 0.9 (0.9-1.1) Sodium Level 136 MMOL/L (136-145) 143 MMOL/L (136-145) Potassium Level 3.3 MMOL/L (3.5-5.1) L 3.4 MMOL/L (3.5-5.1) L Chloride Level 100 MMOL/L (98-107) 109 MMOL/L (98-107) H Carbon Dioxide Level 26 MMOL/L (21-32) 28 MMOL/L (21-32) Anion Gap 10 mmol/L (5-15) 6 mmol/L (5-15) Blood Urea Nitrogen 30 mg/dL (7-18) H 14 mg/dL (7-18) Creatinine 1.1 MG/DL (0.55-1.30) 0.7 MG/DL (0.55-1.30) Estimat Glomerular Filtration Rate mL/min (>60) mL/min (>60) Glucose Level 152 MG/DL (74-106) H 120 MG/DL (74-106) H Lactic Acid Level 2.60 mmol/L (0.4-2.0) H 2.30 mmol/L (0.66-2.22) H 1.80 mmol/L (0.4-2.0) Calcium Level 9.4 MG/DL (8.5-10.1) 8.0 MG/DL (8.5-10.1) L Total Bilirubin 0.7 MG/DL (0.2-1.0) Aspartate Amino Transf (AST/SGOT) 37 U/L (15-37) Alanine Aminotransferase (ALT/SGPT) 21 U/L (12-78) Alkaline Phosphatase 65 U/L (46-116) Total Creatine Kinase 596 U/L (26-308) H Troponin I 0.074 ng/mL (0.000-0.056) 0.125 ng/mL (0.000-0.056) Pro-B-Type Natriuretic Peptide 742 pg/mL (0-125) H Total Protein 7.2 G/DL (6.4-8.2) Albumin 3.0 G/DL (3.4-5.0) L Globulin 4.2 g/dL Albumin/Globulin Ratio 0.7 (1.0-2.7) L Lipase 47 U/L (73-393) L Urine Color Pale yellow Urine Appearance Clear Urine pH 5 (4.5-8.0) Urine Specific [place] 1.015 (1.005-1.035) Urine Protein 2+ (NEGATIVE) H Urine Glucose (UA) Negative (NEGATIVE) Urine Ketones Negative (NEGATIVE) Urine Blood 2+ (NEGATIVE) H Urine Nitrite Positive (NEGATIVE) H Urine Bilirubin Negative (NEGATIVE) Urine Urobilinogen Normal MG/DL (0.0-1.0) Urine Leukocyte Esterase Negative (NEGATIVE) Urine RBC 2-4 /HPF (0 - 2) H Urine WBC 0-2 /HPF (0 - 2) Urine Squamous Epithelial Cells Moderate /LPF (NONE/OCC) H Urine Bacteria Few /HPF (NONE) Magnesium Level 1.9 MG/DL (1.8-2.4) Hiram Fraga MD Oct 31, 2019 14:11
[2019-10-31] MEDS ORDERED: Enoxaparin 40mg Inj SUBQ SCH (14:30)
--- NOTE | 2019-10-31 16:00 | NUR ---
NURSE NOTES: The patient is stable without acute distress or shortness of breath. Will continue plan of care.
--- NOTE | 2019-10-31 16:45 | Consultation ---
DATE OF CONSULTATION: 10/31/2019 CARDIOLOGY CONSULTATION CONSULTING PHYSICIAN: Hiram Fraga M.D. REFERRING PHYSICIAN: Onel La M.D. REASON FOR CONSULTATION: Elevated troponin. HISTORY OF PRESENT ILLNESS: The patient is an 84-year-old lady with history of hypertension and dementia who lives at home with her children, was brought in for upper respiratory symptoms by the paramedics. The patient had low oxygen saturation in the field. The patient is a very poor historian. Most of the information was obtained from reviewing the patient's record. The patient apparently was exposed to sick family members and started cough and fever for 3 to 4 days prior to the admission. The patient was evaluated and a Cardiology consultation was obtained in view of elevated troponin. REVIEW OF SYSTEMS: Negative other than what was mentioned in the history of present illness. PAST MEDICAL HISTORY: As mentioned above. FAMILY HISTORY: Noncontributory. SOCIAL HISTORY: She does not smoke or drink alcohol. Lives with family at home. PHYSICAL EXAMINATION: VITAL SIGNS: Show blood pressure of 120/71, pulse is 87, respirations 20, temperature 98.8. HEAD AND NECK: Shows no JVD. LUNGS: Decreased breath sounds. CARDIOVASCULAR: Regular S1 and S2 with no gallop. ABDOMEN: Soft. EXTREMITIES: 1+ pitting edema. LABORATORY AND DIAGNOSTIC DATA: Her labs show white count of 9.5, hemoglobin of 12.7, hematocrit 36, and platelet count of 188. Sodium 142, potassium 3.4, BUN of 14, creatinine of 0.7, and glucose of 120. Troponin was 0.074 and followup troponin is 0.125. ASSESSMENT AND PLAN: 1. Non-ST elevation myocardial infarction and troponin rise. The patient currently does not have any chest pain. The patient has azotemia, but the creatinine is within normal range. Yesterday, BUN and creatinine is completely normal. Today troponin level. We will treat the patient with aspirin, beta-erik, and statin. Echocardiogram preliminary report showed normal left ventricular systolic function. We will repeat the EKG and troponin at this time. 2. History of hypertension. Start the patient on Lopressor b.i.d. 3. Lactic acidosis and sepsis. She was started on IV antibiotic per Dr. Lawrence. 4. Dementia. Thank you very much for allowing me to participate in the care of this patient. Please do not hesitate to contact me for any questions regarding my evaluation. Hiram Fraga M.D. DR: [place]IA JOB#: [id number] CC:
--- NOTE | 2019-10-31 18:00 | NUR ---
NURSE NOTES: The patient is stable without acute distress or shortness of breath. Oxygen therapy per order. IVF running as ordered. Will continue plan of care.
--- NOTE | 2019-10-31 19:30 | NUR ---
HAND-OFF: Report given to ROLF Gallegos. The patient is resting on the bed without acute distress or shortness of breath. The patient's bed in the lowest position, call light in reach, and fall and aspiration precaution reinforced. IV site intact and patent. Oxygen therapy per order. Endorsed plan of care.
--- NOTE | 2019-10-31 19:33 | NUR ---
NURSE NOTES: Received pt from ROLF De Jesus. Pt is resting in bed in no acute distress, on 3L nasal cannula, saturating >91% with HOB semi fowlers position. Iv site intact and patent. Bed locked in lowest position, bed alarm on, call light within reach. Will continue with plan of care.
[2019-10-31] MEDS: Azithromycin 500 MG in NS 275 ML IV SCH (23:47)
[2019-11-01] VITALS: BP 128/62
[2019-11-01 04:00] VITALS: BP 126/65
[2019-11-01 06:52] LABS: HEMATOCRIT 33.6 % (37.0-47.0); HEMOGLOBIN 11.9 G/DL (12.0-16.0); MEAN CORPUSCULAR VOLUME 92 FL (80-99); PLATELET COUNT 183 K/UL (150-450); RED BLOOD COUNT 3.65 M/UL (4.20-5.40); RED CELL DISTRIBUTION WIDTH 10.9 % (11.6-14.8)
--- NOTE | 2019-11-01 07:05 | NUR ---
report given to ROLF De Jesus. Endorsed plan of care
--- NOTE | 2019-11-01 07:10 | NUR ---
NURSE NOTES: Received report from ROLF Gallegos. The patient is resting on the bed without acute distress or shortness of breath. The patient's bed in the lowest position, call light in reach, and fall and aspiration precaution reinforced. IV site intact and patent. The patient pulled out NC and applied NC again and reinforcement given to the patient. Will continue plan of care.
[2019-11-01 07:33] LABS: ALANINE AMINOTRANSFERASE 19 U/L (12-78); ALBUMIN 2.1 G/DL (3.4-5.0); ALBUMIN/GLOBULIN RATIO 0.6 (1.0-2.7); ALKALINE PHOSPHATASE 54 U/L (46-116); ANION GAP 8 mmol/L (5-15); ASPARTATE AMINO TRANSFERASE 44 U/L (15-37); BILIRUBIN,TOTAL 0.6 MG/DL (0.2-1.0); BLOOD UREA NITROGEN 12 mg/dL (7-18); CALCIUM 7.7 MG/DL (8.5-10.1); CARBON DIOXIDE 24 MMOL/L (21-32); CHLORIDE 110 MMOL/L (98-107); CREATININE 0.6 MG/DL (0.55-1.30); POTASSIUM 2.8 MMOL/L (3.5-5.1); SODIUM 143 MMOL/L (136-145)
[2019-11-01 08:00] VITALS: BP 138/68
[2019-11-01 08:01] LABS: CREATINE KINASE 917 U/L (26-308)
[2019-11-01] MEDS: Aspirin EC 81mg tab ORAL SCH (08:39)
[2019-11-01] MEDS: Atorvastatin 20mg tab ORAL SCH (08:39)
[2019-11-01] MEDS: Docusate 100mg cap ORAL SCH ×2 (08:39→21:21)
--- NOTE | 2019-11-01 08:40 | Consultation ---
Consult Note Assessment/Plan DICT # [id number] Eddie Cardoso MD Nov 01, 2019 08:40
[2019-11-01] MEDS: Heparin 5000 units/ml inj SUBQ SCH ×2 (08:41→21:24)
[2019-11-01] MEDS ORDERED: guaiFENesin 100mg/5ml Liq ud ORAL PRN (08:45)
[2019-11-01] MEDS: cefTRIAXone 1 GM in NS 55 ML IVPB SCH (09:18)
[2019-11-01] MEDS: guaiFENesin ER 600mg tab ORAL SCH ×2 (09:19→17:19)
--- NOTE | 2019-11-01 09:30 | NUR ---
NURSE NOTES: Paged Dr. St regarding hypokalemia. Dr. St ordered 60mEq PO KCL once. Will administer as ordered. Will continue plan of care.
--- NOTE | 2019-11-01 09:30 | NUR ---
NURSE NOTES: Notified elevated CK level from [address] The patient is on NS 100mL/hr per order. Per Dr. St, no new order. Will continue plan of care.
--- NOTE | 2019-11-01 10:45 | Cardiac Electrophysiology PN ---
Assessment/Plan Assessment/Plan 1. Non-ST elevation myocardial infarction and troponin rise. The patient currently does not have any chest pain. Creatinine is within normal range. Continue aspirin, beta-erik, and statin. Echocardiogram normal left ventricular systolic function. 2. History of hypertension. Start the patient on Lopressor 3. Lactic acidosis and sepsis. She was started on IV antibiotic per Dr. Lawrence. 4. Dementia. JACOB RN Subjective Subjective Feeling better on iv Abx. No CP or SOB Objective Last 24 Hour Vital Signs Date Time Temp Pulse Resp B/P (MAP) Pulse Ox O2 Delivery O2 Flow Rate FiO2 11/01/19 09:00 Nasal Cannula 2.0 Nasal Cannula 2.0 11/01/19 08:40 74 138/68 11/01/19 08:00 98.1 74 18 138/68 (91) 97 11/01/19 08:00 73 11/01/19 04:00 75 11/01/19 04:00 97.4 75 16 126/65 (85) 96 11/01/19 00:00 72 11/01/19 00:00 97.7 72 19 128/62 (84) 97 10/31/19 21:06 84 146/69 10/31/19 21:00 Nasal Cannula 3.0 Nasal Cannula 3.0 10/31/19 20:00 100 10/31/19 20:00 97.9 100 19 144/69 (94) 96 10/31/19 16:00 84 10/31/19 16:00 98.1 88 20 143/65 (91) 96 10/31/19 12:33 Room Air 10/31/19 12:32 Nasal Cannula 2.0 10/31/19 12:30 99.0 85 20 133/67 (89) 95 10/31/19 12:30 88 10/31/19 11:58 98.8 84 19 124/78 98 10/31/19 11:10 98.0 87 20 128/71 98 Nasal Cannula Intake and Output 10/31/19 11/01/19 19:00 07:00 Intake Total 240 ml Balance 240 ml Intake Oral 240 ml # Voids 2 6 # Bowel Movements 3 5 Laboratory Tests Test 10/31/19 12:55 11/01/19 05:46 White Blood Count 9.5 K/UL (4.8-10.8) # 11.0 K/UL (4.8-10.8) H Red Blood Count 3.91 M/UL (4.20-5.40) L 3.65 M/UL (4.20-5.40) L Hemoglobin 12.6 G/DL (12.0-16.0) 11.9 G/DL (12.0-16.0) L Hematocrit 36.1 % (37.0-47.0) L 33.6 % (37.0-47.0) L Mean Corpuscular Volume 92 FL (80-99) 92 FL (80-99) Mean Corpuscular Hemoglobin 32.3 PG (27.0-31.0) H 32.5 PG (27.0-31.0) H Mean Corpuscular Hemoglobin Concent 35.0 G/DL (32.0-36.0) 35.4 G/DL (32.0-36.0) Red Cell Distribution Width 11.2 % (11.6-14.8) L 10.9 % (11.6-14.8) L Platelet Count 188 K/UL (150-450) 183 K/UL (150-450) Mean Platelet Volume 5.8 FL (6.5-10.1) L 5.7 FL (6.5-10.1) L Neutrophils (%) (Auto) 84.8 % (45.0-75.0) H % (45.0-75.0) Lymphocytes (%) (Auto) 11.3 % (20.0-45.0) L % (20.0-45.0) Monocytes (%) (Auto) 3.3 % (1.0-10.0) % (1.0-10.0) Eosinophils (%) (Auto) 0.0 % (0.0-3.0) % (0.0-3.0) Basophils (%) (Auto) 0.5 % (0.0-2.0) % (0.0-2.0) Sodium Level 143 MMOL/L (136-145) 143 MMOL/L (136-145) Potassium Level 3.4 MMOL/L (3.5-5.1) L 2.8 MMOL/L (3.5-5.1) L Chloride Level 109 MMOL/L (98-107) H 110 MMOL/L (98-107) H Carbon Dioxide Level 28 MMOL/L (21-32) 24 MMOL/L (21-32) Anion Gap 6 mmol/L (5-15) 8 mmol/L (5-15) Blood Urea Nitrogen 14 mg/dL (7-18) 12 mg/dL (7-18) Creatinine 0.7 MG/DL (0.55-1.30) 0.6 MG/DL (0.55-1.30) Estimat Glomerular Filtration Rate mL/min (>60) mL/min (>60) Glucose Level 120 MG/DL (74-106) H 123 MG/DL (74-106) H Lactic Acid Level 1.80 mmol/L (0.4-2.0) 1.10 mmol/L (0.4-2.0) Calcium Level 8.0 MG/DL (8.5-10.1) L 7.7 MG/DL (8.5-10.1) L Magnesium Level 1.9 MG/DL (1.8-2.4) Troponin I 0.125 ng/mL (0.000-0.056) 0.063 ng/mL (0.000-0.056) Neutrophils % (Manual) Pending Lymphocytes % (Manual) Pending Platelet Estimate Pending Platelet Morphology Pending Total Bilirubin 0.6 MG/DL (0.2-1.0) Aspartate Amino Transf (AST/SGOT) 44 U/L (15-37) H Alanine Aminotransferase (ALT/SGPT) 19 U/L (12-78) Alkaline Phosphatase 54 U/L (46-116) Total Creatine Kinase 917 U/L (26-308) H Total Protein 5.9 G/DL (6.4-8.2) L Albumin 2.1 G/DL (3.4-5.0) L Globulin 3.8 g/dL Albumin/Globulin Ratio 0.6 (1.0-2.7) L Objective HEAD AND NECK: Shows no JVD. LUNGS: Decreased breath sounds. CARDIOVASCULAR: Regular S1 and S2 with no gallop. ABDOMEN: Soft. EXTREMITIES: 1+ pitting edema. Hiram Fraga MD Nov 01, 2019 10:45
--- NOTE | 2019-11-01 10:51 | General Progress Note ---
Assessment/Plan Problem List: (1) Sepsis ICD Codes: A41.9 - Sepsis, unspecified organism SNOMED: 59164958 (2) Pneumonia involving right lung ICD Codes: J18.9 - Pneumonia, unspecified organism SNOMED: 589331742 (3) Rhabdomyolysis ICD Codes: M62.82 - Rhabdomyolysis SNOMED: 012872074 (4) NSTEMI (non-ST elevated myocardial infarction) ICD Codes: I21.4 - Non-ST elevation (NSTEMI) myocardial infarction SNOMED: 43778861 (5) Hypokalemia ICD Codes: E87.6 - Hypokalemia SNOMED: 04137197 (6) VIOLET (acute kidney injury) ICD Codes: N17.9 - Acute kidney failure, unspecified SNOMED: 9953594, 23994142 (7) Ribs, multiple fractures ICD Codes: S22.49XA - Multiple fractures of ribs, unspecified side, initial encounter for closed fracture SNOMED: 7800070 Status: stable Assessment/Plan: 84-year-old female with history of Alzheimer's dementia presents from home with cough and respiratory illness. She was found to have sepsis secondary to community-acquired pneumonia versus UTI, although UA is not impressive. #Sepsis secondary to immune acquired pneumonia versus UTI telemetry IV ceftriaxone, azithromycin, add Flagyl for anaerobic coverage IV NS at 100 mL/h Obtain nasal swab to rule out influenza A/B Follow-up blood cultures Tylenol for fever ID consult, recs appreciated Pulmonary consult with Dr. Eddie Cardoso #VIOLET, prerenal azotemia, resolved Monitor renal function after hydration, avoid nephrotoxic medications. Renal consult if creatinine does not improve #Mild rhabdomyolysis Continue IV hydration. Trend CK #NSTEMI, no reported chest pain no acute ST-T changes on EKG. Likely demand ischemia Continue aspirin Hold beta-blockers due to borderline BP, resume Add statin Cardiology consult, Dr. nair #Hypokalemia replace on potassium #Multiple rib fractures Pain control VTE prophylaxis: Heparin subcu GI prophylaxis: None indicated CODE STATUS: Full code. This was discussed at length with daughter on the phone. Basically they would want her mom to be full code, attempt resuscitation however if she would not have a meaningful chance of survival to withdraw care. She will come in and fill out a POLST I spent 42 minutes on this encounter. Greater than 50% spent on counseling care portion. Plan of care discussed with consultants, RN and patient's daughter Mojgan. Time of note may not reflect time of encounter Subjective Date patient seen: Nov 01, 2019 ROS Limited/Unobtainable: Yes Allergies: Coded Allergies: No Known Allergies (Unverified , 03/14/12) Subjective ROS limited due to dementia. No acute events overnight, vitals stable Objective Last 24 Hour Vital Signs Date Time Temp Pulse Resp B/P (MAP) Pulse Ox O2 Delivery O2 Flow Rate FiO2 11/01/19 09:00 Nasal Cannula 2.0 Nasal Cannula 2.0 11/01/19 08:40 74 138/68 11/01/19 08:00 98.1 74 18 138/68 (91) 97 11/01/19 08:00 73 11/01/19 04:00 75 11/01/19 04:00 97.4 75 16 126/65 (85) 96 11/01/19 00:00 72 11/01/19 00:00 97.7 72 19 128/62 (84) 97 10/31/19 21:06 84 146/69 10/31/19 21:00 Nasal Cannula 3.0 Nasal Cannula 3.0 10/31/19 20:00 100 10/31/19 20:00 97.9 100 19 144/69 (94) 96 10/31/19 16:00 84 10/31/19 16:00 98.1 88 20 143/65 (91) 96 10/31/19 12:33 Room Air 10/31/19 12:32 Nasal Cannula 2.0 10/31/19 12:30 99.0 85 20 133/67 (89) 95 10/31/19 12:30 88 10/31/19 11:58 98.8 84 19 124/78 98 10/31/19 11:10 98.0 87 20 128/71 98 Nasal Cannula Intake and Output 10/31/19 11/01/19 19:00 07:00 Intake Total 240 ml Balance 240 ml Intake Oral 240 ml # Voids 2 6 # Bowel Movements 3 5 Laboratory Tests 10/31/19 12:55: White Blood Count 9.5#, Red Blood Count 3.91L, Hemoglobin 12.6, Hematocrit 36.1L , Mean Corpuscular Volume 92, Mean Corpuscular Hemoglobin 32.3H, Mean Corpuscular Hemoglobin Concent 35.0, Red Cell Distribution Width 11.2L, Platelet Count 188, Mean Platelet Volume 5.8L, Neutrophils (%) (Auto) 84.8H, Lymphocytes (%) (Auto) 11.3L, Monocytes (%) (Auto) 3.3, Eosinophils (%) (Auto) 0.0, Basophils (%) (Auto) 0.5, Sodium Level 143, Potassium Level 3.4L, Chloride Level 109H, Carbon Dioxide Level 28, Anion Gap 6, Blood Urea Nitrogen 14, Creatinine 0.7, Estimat Glomerular Filtration Rate , Glucose Level 120H, Lactic Acid Level 1.80, Calcium Level 8.0L, Magnesium Level 1.9, Troponin I 0.125H 11/01/19 05:46: White Blood Count 11.0H, Red Blood Count 3.65L, Hemoglobin 11.9L, Hematocrit 33.6L, Mean Corpuscular Volume 92, Mean Corpuscular Hemoglobin 32.5H, Mean Corpuscular Hemoglobin Concent 35.4, Red Cell Distribution Width 10.9L, Platelet Count 183, Mean Platelet Volume 5.7L, Neutrophils (%) (Auto) , Lymphocytes (%) (Auto) , Monocytes (%) (Auto) , Eosinophils (%) (Auto) , Basophils (%) (Auto) , Sodium Level 143, Potassium Level 2.8L, Chloride Level 110H, Carbon Dioxide Level 24, Anion Gap 8, Blood Urea Nitrogen 12, Creatinine 0.6, Estimat Glomerular Filtration Rate , Glucose Level 123H, Lactic Acid Level 1.10, Calcium Level 7.7L, Troponin I 0.063H, Differential Total Cells Counted 100, Neutrophils % (Manual) 90H, Lymphocytes % (Manual) 7L, Monocytes % (Manual ) 3, Eosinophils % (Manual) 0, Basophils % (Manual) 0, Band Neutrophils 0, Platelet Estimate Adequate, Platelet Morphology Normal, Red Blood Cell Morphology Normal, Total Bilirubin 0.6, Aspartate Amino Transf (AST/SGOT) 44H, Alanine Aminotransferase (ALT/SGPT) 19, Alkaline Phosphatase 54, Total Creatine Kinase 917H, Total Protein 5.9L, Albumin 2.1L, Globulin 3.8, Albumin/Globulin Ratio 0.6L Height (Feet): 5 Height (Inches): 4.00 Weight (Pounds): 150 Objective General Appearance: no apparent distress, alert, thin Head: normocephalic Eyes: bilateral eye normal inspection, bilateral eye PERRL ENT: dry mucus membranes Neck: supple, no meningismus Respiratory: crackles, rales - Right lung Cardiovascular: no edema, tachycardia, no m/r/g Gastrointestinal: normal inspection, non tender, no mass, non-distended, decreased bowel sounds Genitourinary: no CVA tenderness Musculoskeletal: back normal, no calf tenderness Neurologic: alert and oriented to self only, sensory intact, motor weakness - Diffuse Psychiatric: depressed affect Skin: no rash, warm/dry Moy St M.D. Nov 01, 2019 10:51
[2019-11-01 12:00] VITALS: BP 128/64
--- NOTE | 2019-11-01 12:00 | NUR ---
NURSE NOTES: The patient is stable without acute distress or shortness of breath. Will continue plan of care.
--- NOTE | 2019-11-01 12:45 | Consultation ---
DATE OF CONSULTATION: 11/01/2019 PULMONARY CONSULTATION CONSULTING PHYSICIAN: Eddie Cardoso M.D. REFERRING PHYSICIAN: Moy St M.D. REASON FOR CONSULTATION: Hypoxemia, pneumonia. HISTORY OF PRESENT ILLNESS: The patient is an 84-year-old female with a history of advanced Alzheimer's dementia, hypertension, who lives at home with 24-hour caregiver. The patient's daughter noticed that for the past two days the patient has been coughing, getting increasingly weak with decreased oral intake. She has a walker and is wheelchair bound, but safety has become an increasing issue. No fevers or chills. No chest pain. Cough was nonproductive. The patient was brought in to the ER. She has been afebrile, stable vital signs. Saturating well on 97%. Chest x-ray in the emergency department showed a right upper and middle lobe infiltrate with multiple rib fractures of unknown etiology. She was actually leukopenic when she arrived and now has leukocytosis. Her laboratory workup was otherwise remarkable only for hypokalemia and mild elevation of her troponins. The patient was started on empiric antimicrobial coverage and feels somewhat improved at this time. Her PCP is Dr. Elvis Vidales at [facility] and records on [facility] were reviewed as well. PAST MEDICAL HISTORY: 1. Dementia. 2. Hypertension. 3. Hyperlipidemia. 4. Protein-calorie malnutrition. 5. History of paranoia. 6. Major cognitive disorder. ALLERGIES: No known drug allergies. MEDICATIONS: Prior to admission medications, reviewed. Current medications, reviewed. SOCIAL HISTORY: Lives at home with caregiver. No tobacco, alcohol, or drug use. FAMILY HISTORY: Noncontributory. REVIEW OF SYSTEMS: Negative other than history of present illness. PHYSICAL EXAMINATION: VITAL SIGNS: Temperature 97.4, pulse 75, blood pressure , respiratory rate 16, saturating 98% on 3 liters. GENERAL: She is an elderly demented female, in no acute distress. Awake, alert, and oriented x3. HEENT: Normocephalic and atraumatic. Oropharynx is clear with moist mucous membranes. NECK: Supple without lymphadenopathy. CHEST: Scattered coarse breath sounds. HEART: Regular rate and rhythm. ABDOMEN: Nondistended, soft. EXTREMITIES: No cyanosis, clubbing or edema. ANCILLARY DATA: Laboratories reviewed. Imaging, right-sided infiltrates noted on chest x-ray. ASSESSMENT: The patient is an 84-year-old female with a history of dementia, hypertension, hyperlipidemia, presenting with a respiratory illness, likely community-acquired pneumonia with possible aspiration plus or minus an antecedent viral illness. She is fairly stable from respiratory standpoint. PROBLEM LIST: 1. Community-acquired pneumonia with possible aspiration. 2. Right-sided infiltrate secondary to above. 3. Hypoxemia secondary to above. 4. Advanced dementia. 5. Electrolyte abnormalities. 6. Rhabdomyolysis. 7. Lactic acidosis, resolved. 8. Non ST-elevation [place], likely demand ischemia, troponins are down trending. 9. Anemia. 10. Alzheimer's dementia. 11. Hypertension. 12. Hyperlipidemia. TREATMENT PLAN: 1. Optimize pulmonary hygiene/mobilize as tolerated. 2. P.r.n. O2. 3. Qcrsx-gal-oqluk and p.r.n. bronchodilators. 4. Antibiotics per ID (Rocephin, Flagyl, azithromycin). 5. Monitor volumes and renal function, replete electrolytes. 6. Follow up Cardiology recommendations. 7. Mucinex and p.r.n. Robitussin. 8. Swallow evaluation. 9. Aspiration precautions. 10. DVT prophylaxis, heparin subcutaneous. 11. The patient is a Full Code, continue to discuss goals of care. Thank you for allowing me to assist in the care of your patient. If I may be of any assistance in the future, please do not hesitate to ask. Eddie Cardoso M.D. DR: TRINO JOB#: [id number] CC:
--- NOTE | 2019-11-01 14:07 | NUR ---
*-* INSURANCE *-* ALL AVAILABLE CLINICALS HAVE BEEN FAXED TO: [facility]#[phone] fax#[phone]
--- NOTE | 2019-11-01 15:23 | NUR ---
CASE MANAGEMENT:REVIEW 84 YR OLD FEMALE BIBA FROM HOME CC; GENERALIZED WEAKNESS. S/P FALL SI: PNEUMONIA. ELEVATED TROPONIN 98.6 110 18 114/53 98% ON RA WBC-2.6 BUN+30 TROPONIN(+) 0.074 IS: 1L NS BOLUS DUONEB HHN IV AZITHROMYCIN IV ZOSYN ASA PO CHEST XRAY : TELEMETRY STATUS
[2019-11-01 16:00] VITALS: BP 152/74
--- NOTE | 2019-11-01 16:00 | NUR ---
NURSE NOTES: The patient is stable without acute distress or shortness of breath. Will continue plan of care.
--- NOTE | 2019-11-01 19:16 | NUR ---
NURSE NOTES: Received pt from ROLF De Jesus. Pt is awake and resting in bed in no acute distress. IV site intact. Wild catheter intact and draining. Pt on oxygen support via nasal cannula, HOB elevated. Bed locked in lowest position, bed alarm in reach, bed alarm on. Will continue with plan of care.
[2019-11-01 20:00] VITALS: BP 109/62
--- NOTE | 2019-11-01 21:26 | Infectious Diseases Prog Note ---
Assessment/Plan Assessment/Plan A) 1) cap, sepsis, elevated lactic acid, leukopenia, now with mild leukocytosis 2) pmh noted 3) allergies - nkda P) 1) rocephin, flagyl, azithromycin 2) check cultures, labs and chest x-ray 3) will f/u Subjective Constitutional: Denies: fever HEENT: Denies: congestion Respiratory: Denies: shortness of breath Cardiovascular: Denies: chest pain Gastrointestinal/Abdominal: Denies: nausea, vomiting Allergies: Coded Allergies: No Known Allergies (Unverified , 03/14/12) Objective Vital Signs Last 24 Hour Vital Signs Date Time Temp Pulse Resp B/P (MAP) Pulse Ox O2 Delivery O2 Flow Rate FiO2 11/01/19 20:11 96 Nasal Cannula 2.0 28 11/01/19 16:00 77 11/01/19 16:00 97.9 80 18 152/74 (100) 95 11/01/19 12:00 97.8 70 18 128/64 (85) 95 11/01/19 12:00 70 11/01/19 09:45 95 Nasal Cannula 2.0 28 11/01/19 09:00 Nasal Cannula 2.0 Nasal Cannula 2.0 11/01/19 08:40 74 138/68 11/01/19 08:00 98.1 74 18 138/68 (91) 97 11/01/19 08:00 73 11/01/19 04:00 75 11/01/19 04:00 97.4 75 16 126/65 (85) 96 11/01/19 00:00 72 11/01/19 00:00 97.7 72 19 128/62 (84) 97 Height (Feet): 5 Height (Inches): 4.00 Weight (Pounds): 150 General Appearance: no acute distress HEENT: normocephalic, atraumatic, anicteric Respiratory/Chest: lungs clear, normal breath sounds Cardiovascular: normal peripheral pulses, normal rate, regular rhythm Abdomen: normal bowel sounds, soft, non tender, no organomegaly Extremities: no cyanosis Skin: no rash Laboratory Tests Test 11/01/19 05:46 White Blood Count 11.0 K/UL (4.8-10.8) H Red Blood Count 3.65 M/UL (4.20-5.40) L Hemoglobin 11.9 G/DL (12.0-16.0) L Hematocrit 33.6 % (37.0-47.0) L Mean Corpuscular Volume 92 FL (80-99) Mean Corpuscular Hemoglobin 32.5 PG (27.0-31.0) H Mean Corpuscular Hemoglobin Concent 35.4 G/DL (32.0-36.0) Red Cell Distribution Width 10.9 % (11.6-14.8) L Platelet Count 183 K/UL (150-450) Mean Platelet Volume 5.7 FL (6.5-10.1) L Neutrophils (%) (Auto) % (45.0-75.0) Lymphocytes (%) (Auto) % (20.0-45.0) Monocytes (%) (Auto) % (1.0-10.0) Eosinophils (%) (Auto) % (0.0-3.0) Basophils (%) (Auto) % (0.0-2.0) Differential Total Cells Counted 100 Neutrophils % (Manual) 90 % (45-75) H Lymphocytes % (Manual) 7 % (20-45) L Monocytes % (Manual) 3 % (1-10) Eosinophils % (Manual) 0 % (0-3) Basophils % (Manual) 0 % (0-2) Band Neutrophils 0 % (0-8) Platelet Estimate Adequate Platelet Morphology Normal Red Blood Cell Morphology Normal Sodium Level 143 MMOL/L (136-145) Potassium Level 2.8 MMOL/L (3.5-5.1) L Chloride Level 110 MMOL/L (98-107) H Carbon Dioxide Level 24 MMOL/L (21-32) Anion Gap 8 mmol/L (5-15) Blood Urea Nitrogen 12 mg/dL (7-18) Creatinine 0.6 MG/DL (0.55-1.30) Estimat Glomerular Filtration Rate mL/min (>60) Glucose Level 123 MG/DL (74-106) H Lactic Acid Level 1.10 mmol/L (0.4-2.0) Calcium Level 7.7 MG/DL (8.5-10.1) L Total Bilirubin 0.6 MG/DL (0.2-1.0) Aspartate Amino Transf (AST/SGOT) 44 U/L (15-37) H Alanine Aminotransferase (ALT/SGPT) 19 U/L (12-78) Alkaline Phosphatase 54 U/L (46-116) Total Creatine Kinase 917 U/L (26-308) H Troponin I 0.063 ng/mL (0.000-0.056) Total Protein 5.9 G/DL (6.4-8.2) L Albumin 2.1 G/DL (3.4-5.0) L Globulin 3.8 g/dL Albumin/Globulin Ratio 0.6 (1.0-2.7) L Current Medications Medications (Trade) Dose Ordered Sig/Khang Route PRN Reason Start Time Stop Time Status Last Admin Dose Admin Acetaminophen (Tylenol) 650 mg Q4H PRN ORAL Mild Pain (Pain Scale 1-3) 10/30/19 22:45 11/29/19 22:44 Acetaminophen (Tylenol) 650 mg Q4H PRN ORAL fever 10/30/19 22:45 11/29/19 22:44 Acetaminophen (Tylenol) 650 mg Q4H PRN RECTAL Mild Pain (Pain Scale 1-3) 10/30/19 22:45 11/29/19 22:44 Acetaminophen (Tylenol) 650 mg Q4H PRN RECTAL fever 10/30/19 22:45 11/29/19 22:44 Aspirin (Ecotrin) 81 mg DAILY ORAL 11/01/19 09:00 12/01/19 08:59 11/01/19 08:39 Atorvastatin Calcium (Lipitor) 40 mg DAILY ORAL 11/01/19 09:00 12/01/19 08:59 11/01/19 08:39 Azithromycin 500 mg/Sodium Chloride 275 ml @ 275 mls/hr Q24H IV 10/31/19 23:00 11/07/19 22:59 10/31/19 23:47 Ceftriaxone Sodium 1 gm/ Sodium Chloride 55 ml @ 110 mls/hr Q24HRS IVPB 10/31/19 09:00 11/07/19 08:59 11/01/19 09:18 Dextrose (Dextrose 50%) 25 ml Q30M PRN IV Hypoglycemia 10/30/19 22:45 11/29/19 22:44 Dextrose (Dextrose 50%) 25 ml Q30M PRN IV Hypoglycemia 10/31/19 13:30 11/30/19 13:29 Dextrose (Dextrose 50%) 50 ml Q30M PRN IV Hypoglycemia 10/30/19 22:45 11/29/19 22:44 Dextrose (Dextrose 50%) 50 ml Q30M PRN IV Hypoglycemia 10/31/19 13:30 11/30/19 13:29 Docusate Sodium (Colace) 100 mg EVERY 12 HOURS ORAL 10/31/19 09:00 11/30/19 08:59 11/01/19 08:39 Guaifenesin (Mucinex ER) 600 mg TWICE A DAY ORAL 11/01/19 09:00 12/01/19 08:59 11/01/19 17:19 Guaifenesin (Robitussin) 100 mg Q4H PRN ORAL For Cough 11/01/19 08:45 12/01/19 08:44 Heparin Sodium (Porcine) (Heparin 5000 units/ml) 5,000 units EVERY 12 HOURS SUBQ 10/31/19 09:00 11/30/19 08:59 11/01/19 08:41 Hydromorphone HCl (Dilaudid) 0.5 mg Q4H PRN IVP For Pain moderate 4-6 10/31/19 13:30 11/07/19 13:29 Ipratropium [place] (Atrovent) 500 mcg Q4H PRN HHN Shortness of Breath 10/31/19 13:30 11/05/19 13:29 Metoprolol Tartrate (Lopressor) 25 mg Q12HR ORAL 10/31/19 21:00 11/30/19 20:59 11/01/19 08:40 Metronidazole 100 ml @ 100 mls/hr Q8HR IVPB 10/31/19 14:00 11/07/19 13:59 11/01/19 13:10 Olanzapine (ZyPREXA) 5 mg QHS ORAL 11/01/19 21:00 12/02/19 08:59 Ondansetron HCl (Zofran) 4 mg Q6H PRN IVP Nausea & Vomiting 10/30/19 22:45 11/29/19 22:44 Polyethylene Glycol (Miralax) 17 gm DAILYPRN PRN ORAL Constipation 10/30/19 22:45 11/29/19 22:44 Sodium Chloride 1,000 ml @ 100 mls/hr Q10H IV 10/31/19 13:30 11/30/19 13:29 11/01/19 17:19 Susana Lawrence MD Nov 01, 2019 21:26
[2019-11-01] MEDS: Azithromycin 500 MG in NS 275 ML IV SCH (23:00)
--- NOTE | 2019-11-01 23:45 | Consultation ---
DATE OF CONSULTATION: 11/01/2019 INFECTIOUS DISEASES CONSULTATION CONSULTING PHYSICIAN: Susana Lawrence M.D. ATTENDING PHYSICIAN: Onel La M.D. REFERRING PHYSICIAN: Moy St M.D. REASON FOR CONSULTATION: Pneumonia, sepsis, leukopenia, and now leukocytosis. CHIEF COMPLAINT: The patient's chief complaint coming into the hospital is pneumonia and sepsis. HISTORY OF PRESENT ILLNESS: This is an 84-year-old female comes to [facility], was diagnosed with pneumonia. The patient on chest x-ray has a right pulmonary infiltrate. The patient also had leukopenia on admission with a white count of 2.6, elevated lactic acid level, elevated heart rate and also elevated respiratory rate, and possible sepsis. Infectious Disease consultation was requested. The patient was continued on Rocephin, Flagyl, and azithromycin. Pending workup for pneumonia and sepsis. The patient is not a very good historian, but is responsive. Sputum culture this time is pending. Again, chest x-ray with right-sided pneumonia. REVIEW OF SYSTEMS: GENERAL: The patient had generalized fatigue and weakness, but is responsive. HEAD AND NECK: No headache or neck stiffness. CARDIAC: No chest pain. GASTROINTESTINAL: No nausea, vomiting, or diarrhea. GENITOURINARY: No Wild. PULMONARY: Mild cough and congestion. SKIN: No rash. EXTREMITIES: No pain. NEUROLOGICAL: Generalized fatigue and weakness. No seizures. No fevers currently. PAST MEDICAL HISTORY: The patient has the past medical history of hypertension, Alzheimer's, and dementia. She is at risk for aspiration. She has a history of other past medical of rib fractures, renal failure, leukopenia, anemia, and also elevated troponin currently. ALLERGIES: No known drug allergies. SOCIAL HISTORY: Negative for smoking, alcohol, or drug abuse. FAMILY HISTORY: Noncontributory. MEDICATIONS: Upon reviewing the MAR, she is on the following medications. She is on Zyprexa, Ecotrin, Lipitor, azithromycin, Rocephin, metoprolol, hydromorphone, azithromycin, heparin, acetaminophen, and polyethylene glycol. Outside medications noted and reconciliated. PHYSICAL EXAMINATION: VITAL SIGNS: Temperature is 97.9 degrees, pulse rate 80, respiratory rate 18, blood pressure 150/74, and saturation 95%. Pulse rate was as high as 115. Respiratory rate as high as 27. GENERAL: Weak, but responsive. HEAD AND NECK: Oral exam, no thrush. Eye exam, no icterus. Normocephalic. Neck is supple. HEART: Regular rate and rhythm. No gallop or murmur. No friction rub. ABDOMEN: Soft. Positive bowel sounds. Nontender. LUNGS: Clear bilaterally. No rhonchi or rales. SKIN: No rash. MUSCULOSKELETAL: No effusion. Legs are without cellulitis. PERIPHERAL VASCULAR: No cyanosis or gangrene. GENITOURINARY: No Wild. LINE SITES: Without phlebitis. NEUROLOGICAL: Generalized weakness. Alert and responsive LABORATORY AND IMAGING DATA: Potassium 2.8. Creatinine is 0.6. White count 11.0 and hemoglobin 11.9. White count initially was 2.6. Urinalysis, leukocyte esterase negative and only 0 to 2 white cells. Influenza screen is pending. Sputum culture is pending. Chest x-ray with right pulmonary infiltrate. ASSESSMENT AND PLAN: 1. The patient has right-sided pneumonia. She certainly could have community-acquired pneumonia, but also the risk for aspiration with Alzheimer dementia history. Continue Rocephin, Flagyl, and azithromycin. Gram-negative anaerobic and atypical coverage and also Streptococcus pneumoniae coverage. Continue Rocephin, azithromycin, and Flagyl for sepsis and pneumonia. The patient did have an elevated lactic acid that was as high as 2.6 initially. This is improved. Continue antibiotics. Check sputum culture, chest x-ray, and labs. Monitor the patient clinically. The patient does not have mild leukocytosis, but initially was leukopenic. 2. The patient has history of hypertension. 3. Alzheimer. 4. Dementia. 5. Aspiration risk. 6. Question of hyperlipidemia. 7. Leukopenia and anemia. 8. Hypokalemia. 9. No known drug allergies. 10. Social history is negative. 11. Family history is noncontributory. 12. MAR is noted. 13. Case was discussed with RN. 14. Continue treatment per primary consultants. 15. Orders were noted and entered. Susana Lawrence M.D. DR: KRYSTEN JOB#: [id number] CC:
[2019-11-02] VITALS: BP 111/64
[2019-11-02 04:00] VITALS: BP 113/66
--- NOTE | 2019-11-02 07:11 | NUR ---
HAND-OFF: Report given to Katelyn De Jesus. Plan of care endorsed.
--- NOTE | 2019-11-02 07:15 | NUR ---
NURSE NOTES: Received report from ROLF Gallegos. The patient is resting on the bed without acute distress or shortness of breath. The patient's bed in the lowest position, call light in reach, and fall and aspiration precaution reinforced. IV site intact and patent. Oxygen therapy per order. Will continue plan of care.
[2019-11-02 07:33] LABS: HEMATOCRIT 32.3 % (37.0-47.0); HEMOGLOBIN 11.3 G/DL (12.0-16.0); MEAN CORPUSCULAR VOLUME 92 FL (80-99); PLATELET COUNT 196 K/UL (150-450); RED CELL DISTRIBUTION WIDTH 11.3 % (11.6-14.8); WHITE BLOOD COUNT 10.9 K/UL (4.8-10.8)
[2019-11-02 07:38] LABS: ALANINE AMINOTRANSFERASE 16 U/L (12-78); ALBUMIN 1.9 G/DL (3.4-5.0); ALBUMIN/GLOBULIN RATIO 0.5 (1.0-2.7); ALKALINE PHOSPHATASE 60 U/L (46-116); ANION GAP 9 mmol/L (5-15); ASPARTATE AMINO TRANSFERASE 26 U/L (15-37); BILIRUBIN,TOTAL 0.5 MG/DL (0.2-1.0); BLOOD UREA NITROGEN 10 mg/dL (7-18); CALCIUM 7.4 MG/DL (8.5-10.1); CARBON DIOXIDE 24 MMOL/L (21-32); CHLORIDE 113 MMOL/L (98-107); CREATININE 0.5 MG/DL (0.55-1.30); SODIUM 147 MMOL/L (136-145)
[2019-11-02 07:58] LABS: POTASSIUM 2.7 MMOL/L (3.5-5.1)
[2019-11-02 08:00] VITALS: BP 153/80
[2019-11-02] MEDS: Docusate 100mg cap ORAL SCH ×2 (08:27→20:26)
[2019-11-02] MEDS: cefTRIAXone 1 GM in NS 55 ML IVPB SCH (08:27)
[2019-11-02] MEDS: Atorvastatin 20mg tab ORAL SCH (08:28)
[2019-11-02] MEDS: Aspirin EC 81mg tab ORAL SCH (08:28)
[2019-11-02] MEDS: guaiFENesin ER 600mg tab ORAL SCH ×2 (08:29→17:34)
[2019-11-02] MEDS: Heparin 5000 units/ml inj SUBQ SCH ×2 (08:30→20:37)
--- NOTE | 2019-11-02 08:30 | NUR ---
NURSE NOTES: Paged Dr. St regarding Potassium of 2.7. ordered KCL 60mEq PO now and four hours later. ordered Magnesium level. Will carry out the order. Will continue plan of care.
--- NOTE | 2019-11-02 08:41 | General Progress Note ---
Assessment/Plan Problem List: (1) Sepsis ICD Codes: A41.9 - Sepsis, unspecified organism SNOMED: 29759377 (2) Pneumonia involving right lung ICD Codes: J18.9 - Pneumonia, unspecified organism SNOMED: 724579076 (3) Rhabdomyolysis ICD Codes: M62.82 - Rhabdomyolysis SNOMED: 190850668 (4) Ribs, multiple fractures ICD Codes: S22.49XA - Multiple fractures of ribs, unspecified side, initial encounter for closed fracture SNOMED: 1564514 (5) VIOLET (acute kidney injury) ICD Codes: N17.9 - Acute kidney failure, unspecified SNOMED: 9471264, 98419073 (6) Hypokalemia ICD Codes: E87.6 - Hypokalemia SNOMED: 98461616 (7) NSTEMI (non-ST elevated myocardial infarction) ICD Codes: I21.4 - Non-ST elevation (NSTEMI) myocardial infarction SNOMED: 69996159 Status: stable Assessment/Plan: 84-year-old female with history of Alzheimer's dementia presents from home with cough and respiratory illness. She was found to have sepsis secondary to community-acquired pneumonia versus UTI, although UA is not impressive. #Sepsis secondary to community acquired pneumonia versus UTI telemetry IV ceftriaxone, azithromycin, add Flagyl for anaerobic coverage Stop IV fluids Follow-up blood cultures Tylenol for fever ID consult, recs appreciated Pulmonary consult with Dr. Eddie Cardoso #Fluid overload. ?diastolic dysfunction Trial of IV diuresis #VIOLET, prerenal azotemia- improving Monitor renal function after hydration, avoid nephrotoxic medications. Renal consult if creatinine does not improve #Mild rhabdomyolysis Trend CK, will have to stop IVF due to congestion #nstemi continue b erik, statin ASA echo normal ef Cardiology consult, Dr. nair #Hypokalemia Replace potassium, check magnesium #Multiple rib fractures Pain control VTE prophylaxis: Heparin subcu GI prophylaxis: None indicated CODE STATUS: Full code. This was discussed at length with daughter on the phone. Basically they would want her mom to be full code, attempt resuscitation however if she would not have a meaningful chance of survival to withdraw care. She will come in and fill out a POLST Speech evaluation PT I spent 40 minutes on this encounter. Greater than 50% spent on counseling care portion. Plan of care discussed with consultants, RN and patient's daughter Mojgan. Time of note may not reflect time of encounter Subjective Date patient seen: Nov 02, 2019 ROS Limited/Unobtainable: No Constitutional: Denies: no symptoms, chills, diaphoresis, fever, malaise, weakness, other HEENT: Denies: no symptoms, eye pain, blurred vision, tearing, double vision, ear pain, ear discharge, nose pain, nose congestion, throat pain, throat swelling, mouth pain, mouth swelling, other Cardiovascular: Denies: no symptoms, chest pain, edema, irregular heart rate, lightheadedness, palpitations, syncope, other Respiratory: Denies: no symptoms, cough, orthopnea, shortness of breath, SOB with excertion, SOB at rest, sputum, stridor, wheezing, other Gastrointestinal/Abdominal: Denies: no symptoms, abdomen distended, abdominal pain, black stools, tarry stools, blood in stool, constipated, diarrhea, difficulty swallowing, nausea, poor appetite, poor fluid intake, rectal bleeding , vomiting, other Genitourinary: Denies: no symptoms, burning, discharge, frequency, flank pain, hematuria, incontinence, pain, urgency, other Neurologic/Psychiatric: Denies: no symptoms, anxiety, depressed, emotional problems, headache, numbness, paresthesia, pre-existing deficit, seizure, tingling, tremors, weakness, other Endocrine: Denies: no symptoms, excessive sweating, flushing, intolerance to cold, intolerance to heat, increased hunger, increased thirst, increased urine, unexplained weight gain, unexplained weight loss, other Hematologic/Lymphatic: Denies: no symptoms, anemia, easy bleeding, easy bruising, other Allergies: Coded Allergies: No Known Allergies (Unverified , 03/14/12) Subjective no acute events. CXR worse, clinically stable , no complaints Objective Last 24 Hour Vital Signs Date Time Temp Pulse Resp B/P (MAP) Pulse Ox O2 Delivery O2 Flow Rate FiO2 11/02/19 08:29 77 153/80 11/02/19 04:00 97.6 79 18 113/66 (82) 98 11/02/19 04:00 79 11/02/19 00:00 97.3 68 17 111/64 (80) 97 11/02/19 00:00 68 11/01/19 21:21 81 153/77 11/01/19 21:00 Nasal Cannula 3.0 Nasal Cannula 3.0 11/01/19 20:11 96 Nasal Cannula 2.0 28 11/01/19 20:00 81 11/01/19 20:00 97.2 81 16 109/62 (78) 98 11/01/19 16:00 77 11/01/19 16:00 97.9 80 18 152/74 (100) 95 11/01/19 12:00 97.8 70 18 128/64 (85) 95 11/01/19 12:00 70 11/01/19 09:45 95 Nasal Cannula 2.0 28 11/01/19 09:00 Nasal Cannula 2.0 Nasal Cannula 2.0 Intake and Output 11/01/19 11/02/19 19:00 07:00 Intake Total 540 ml Balance 540 ml Intake Oral 540 ml # Voids 6 8 # Bowel Movements 6 3 Laboratory Tests 11/01/19 22:39: Troponin I 0.078H 11/02/19 05:40: White Blood Count 10.9H, Red Blood Count 3.50L, Hemoglobin 11.3L, Hematocrit 32.3L, Mean Corpuscular Volume 92, Mean Corpuscular Hemoglobin 32.3H, Mean Corpuscular Hemoglobin Concent 35.0, Red Cell Distribution Width 11.3L, Platelet Count 196, Mean Platelet Volume 6.1L, Neutrophils (%) (Auto) , Lymphocytes (%) (Auto) , Monocytes (%) (Auto) , Eosinophils (%) (Auto) , Basophils (%) (Auto) , Neutrophils % (Manual) [Pending], Lymphocytes % (Manual) [Pending], Platelet Estimate [Pending], Platelet Morphology [Pending], Sodium Level 147H, Potassium Level 2.7*L, Chloride Level 113H, Carbon Dioxide Level 24 , Anion Gap 9, Blood Urea Nitrogen 10, Creatinine 0.5L, Estimat Glomerular Filtration Rate , Glucose Level 137H, Calcium Level 7.4L, Total Bilirubin 0.5, Aspartate Amino Transf (AST/SGOT) 26, Alanine Aminotransferase (ALT/SGPT) 16, Alkaline Phosphatase 60, Total Protein 5.6L, Albumin 1.9L, Globulin 3.7, Albumin /Globulin Ratio 0.5L Height (Feet): 5 Height (Inches): 4.00 Weight (Pounds): 113 Objective General Appearance: no apparent distress, alert, thin Head: normocephalic Eyes: bilateral eye normal inspection, bilateral eye PERRL ENT: dry mucus membranes Neck: supple, no meningismus Respiratory: crackles, rales - Right lung Cardiovascular: no edema, tachycardia, no m/r/g Gastrointestinal: normal inspection, non tender, no mass, non-distended, decreased bowel sounds Genitourinary: no CVA tenderness Musculoskeletal: back normal, no calf tenderness Neurologic: alert and oriented to self only, sensory intact, motor weakness - Diffuse Psychiatric: depressed affect Skin: no rash, warm/dry Moy St M.D. Nov 02, 2019 08:41
--- NOTE | 2019-11-02 09:22 | Diagnostic Imaging Report ---
Indication: Cough Technique: One view of the chest Comparison: 10/30/2019 Findings: Interim marked increase in dense consolidation in the right lung, especially in the right upper lobe but also in the right perihilar region and right lung base. There is probably increased pleural fluid on the right. There is increased pleural fluid on the left. There is increased interstitial congestion on the left. The heart is upper limits normal in size. The aorta is tortuous ectatic and calcified. Right rib fracture deformities are again demonstrated Impression: Over 3 days, markedly increased right upper lobe and right mid and lower lung infiltrates versus edema. Increased bilateral pleural fluid Increased left-sided interstitial congestion
--- NOTE | 2019-11-02 11:30 | Pulmonology Progress Note ---
Assessment/Plan Problems: (1) Right upper lobe pneumonia (2) Right lower lobe pneumonia (3) Pleural effusion, left (4) NSTEMI (non-ST elevated myocardial infarction) (5) Pneumonia involving right lung (6) Sepsis Assessment/Plan ASSESSMENT: The patient is an 84-year-old female with a history of dementia, hypertension, hyperlipidemia, presenting with a respiratory illness, likely community-acquired pneumonia with possible aspiration plus or minus an antecedent viral illness. She is fairly stable from respiratory standpoint. PROBLEM LIST: 1. Community-acquired pneumonia with possible aspiration. 2. Right-sided infiltrate secondary to above. 3. Hypoxemia secondary to above. 4. Advanced dementia. 5. Electrolyte abnormalities. 6. Rhabdomyolysis. 7. Lactic acidosis, resolved. 8. Non ST-elevation [place], likely demand ischemia, troponins are down trending. 9. Anemia. 10. Alzheimer's dementia. 11. Hypertension. 12. Hyperlipidemia. TREATMENT PLAN: 1. Optimize pulmonary hygiene/mobilize as tolerated. 2. P.r.n. O2. 3. Ykfys-uya-kuqow and p.r.n. bronchodilators. 4. Antibiotics per ID (Rocephin, Flagyl, azithromycin). 5. Monitor volumes and renal function, replete electrolytes. 6. Follow up Cardiology recommendations. 7. Mucinex and p.r.n. Robitussin. 8. Swallow evaluation. 9. Aspiration precautions. 10. DVT prophylaxis, heparin subcutaneous. 11. The patient is a Full Code, continue to discuss goals of care. Subjective Allergies: Coded Allergies: No Known Allergies (Unverified , 03/14/12) Subjective AFVSS on 2-3L + cough + SOB no FC no CP CXR worse Objective Last 24 Hour Vital Signs Date Time Temp Pulse Resp B/P (MAP) Pulse Ox O2 Delivery O2 Flow Rate FiO2 11/02/19 09:00 Nasal Cannula 2.0 Nasal Cannula 2.0 11/02/19 08:29 77 153/80 11/02/19 08:00 75 11/02/19 08:00 98.2 77 18 153/80 (104) 96 11/02/19 04:00 97.6 79 18 113/66 (82) 98 11/02/19 04:00 79 11/02/19 00:00 97.3 68 17 111/64 (80) 97 11/02/19 00:00 68 11/01/19 21:21 81 153/77 11/01/19 21:00 Nasal Cannula 3.0 Nasal Cannula 3.0 11/01/19 20:11 96 Nasal Cannula 2.0 28 11/01/19 20:00 81 11/01/19 20:00 97.2 81 16 109/62 (78) 98 11/01/19 16:00 77 11/01/19 16:00 97.9 80 18 152/74 (100) 95 11/01/19 12:00 97.8 70 18 128/64 (85) 95 11/01/19 12:00 70 Intake and Output 11/01/19 11/02/19 19:00 07:00 Intake Total 540 ml Balance 540 ml Intake Oral 540 ml # Voids 6 8 # Bowel Movements 6 3 General Appearance: no acute distress HEENT: normocephalic, atraumatic, anicteric, mucous membranes moist Respiratory/Chest: crackles/rales - BiB, rhonchi Cardiovascular: normal peripheral pulses, normal rate, regular rhythm Abdomen: normal bowel sounds, soft, non tender, no organomegaly, non distended , no mass Extremities: no cyanosis, no clubbing, no edema Laboratory Tests 11/01/19 22:39: Troponin I 0.078H 11/02/19 05:40: White Blood Count 10.9H, Red Blood Count 3.50L, Hemoglobin 11.3L, Hematocrit 32.3L, Mean Corpuscular Volume 92, Mean Corpuscular Hemoglobin 32.3H, Mean Corpuscular Hemoglobin Concent 35.0, Red Cell Distribution Width 11.3L, Platelet Count 196, Mean Platelet Volume 6.1L, Neutrophils (%) (Auto) , Lymphocytes (%) (Auto) , Monocytes (%) (Auto) , Eosinophils (%) (Auto) , Basophils (%) (Auto) , Differential Total Cells Counted 100, Neutrophils % ( Manual) 88H, Lymphocytes % (Manual) 9L, Monocytes % (Manual) 3, Eosinophils % ( Manual) 0, Basophils % (Manual) 0, Band Neutrophils 0, Platelet Estimate Adequate, Platelet Morphology Normal, Red Blood Cell Morphology Normal, Sodium Level 147H, Potassium Level 2.7*L, Chloride Level 113H, Carbon Dioxide Level 24 , Anion Gap 9, Blood Urea Nitrogen 10, Creatinine 0.5L, Estimat Glomerular Filtration Rate , Glucose Level 137H, Calcium Level 7.4L, Magnesium Level 2.0, Total Bilirubin 0.5, Aspartate Amino Transf (AST/SGOT) 26, Alanine Aminotransferase (ALT/SGPT) 16, Alkaline Phosphatase 60, Total Protein 5.6L, Albumin 1.9L, Globulin 3.7, Albumin/Globulin Ratio 0.5L Current Medications Medications (Trade) Dose Ordered Sig/Khang Route PRN Reason Start Time Stop Time Status Last Admin Dose Admin Acetaminophen (Tylenol) 650 mg Q4H PRN ORAL Mild Pain (Pain Scale 1-3) 10/30/19 22:45 11/29/19 22:44 11/02/19 05:43 Acetaminophen (Tylenol) 650 mg Q4H PRN ORAL fever 10/30/19 22:45 11/29/19 22:44 Acetaminophen (Tylenol) 650 mg Q4H PRN RECTAL Mild Pain (Pain Scale 1-3) 10/30/19 22:45 11/29/19 22:44 Acetaminophen (Tylenol) 650 mg Q4H PRN RECTAL fever 10/30/19 22:45 11/29/19 22:44 Aspirin (Ecotrin) 81 mg DAILY ORAL 11/01/19 09:00 12/01/19 08:59 11/02/19 08:28 Atorvastatin Calcium (Lipitor) 40 mg DAILY ORAL 11/01/19 09:00 12/01/19 08:59 11/02/19 08:28 Azithromycin 500 mg/Sodium Chloride 275 ml @ 275 mls/hr Q24H IV 10/31/19 23:00 11/07/19 22:59 11/01/19 23:00 Ceftriaxone Sodium 1 gm/ Sodium Chloride 55 ml @ 110 mls/hr Q24HRS IVPB 10/31/19 09:00 11/07/19 08:59 11/02/19 08:27 Dextrose (Dextrose 50%) 25 ml Q30M PRN IV Hypoglycemia 10/30/19 22:45 11/29/19 22:44 Dextrose (Dextrose 50%) 25 ml Q30M PRN IV Hypoglycemia 10/31/19 13:30 11/30/19 13:29 Dextrose (Dextrose 50%) 50 ml Q30M PRN IV Hypoglycemia 10/30/19 22:45 11/29/19 22:44 Dextrose (Dextrose 50%) 50 ml Q30M PRN IV Hypoglycemia 10/31/19 13:30 11/30/19 13:29 Docusate Sodium (Colace) 100 mg EVERY 12 HOURS ORAL 10/31/19 09:00 11/30/19 08:59 11/01/19 21:21 Guaifenesin (Mucinex ER) 600 mg TWICE A DAY ORAL 11/01/19 09:00 12/01/19 08:59 11/02/19 08:29 Guaifenesin (Robitussin) 100 mg Q4H PRN ORAL For Cough 11/01/19 08:45 12/01/19 08:44 Heparin Sodium (Porcine) (Heparin 5000 units/ml) 5,000 units EVERY 12 HOURS SUBQ 10/31/19 09:00 11/30/19 08:59 11/02/19 08:30 Hydromorphone HCl (Dilaudid) 0.5 mg Q4H PRN IVP For Pain moderate 4-6 10/31/19 13:30 11/07/19 13:29 Ipratropium [place] (Atrovent) 500 mcg Q4H PRN HHN Shortness of Breath 10/31/19 13:30 11/05/19 13:29 Metoprolol Tartrate (Lopressor) 25 mg Q12HR ORAL 10/31/19 21:00 11/30/19 20:59 11/02/19 08:29 Metronidazole 100 ml @ 100 mls/hr Q8HR IVPB 10/31/19 14:00 11/07/19 13:59 11/02/19 06:18 Olanzapine (ZyPREXA) 5 mg QHS ORAL 11/01/19 21:00 12/02/19 08:59 11/01/19 21:21 Ondansetron HCl (Zofran) 4 mg Q6H PRN IVP Nausea & Vomiting 10/30/19 22:45 11/29/19 22:44 Polyethylene Glycol (Miralax) 17 gm DAILYPRN PRN ORAL Constipation 10/30/19 22:45 11/29/19 22:44 Potassium Chloride (K-Dur) 60 meq Q4H ORAL 11/02/19 09:15 11/02/19 13:16 11/02/19 09:23 Eddie Cardoso MD Nov 02, 2019 11:30
[2019-11-02 12:00] VITALS: BP 137/76
--- NOTE | 2019-11-02 13:05 | NUR ---
CASE MANAGEMENT:REVIEW 11/01/19 SI: PNEUMONIA. ELEVATED TROPONIN 98.2 70 18 137/76 97% ON 2L/NC K-2.7 IS: IV AZITHROMYCIN Q24 IV FLAGYL Q8HRS IV LASIX X1 K-DUR PO Q4HRS ASA PO QD LOPRESSOR PO Q12 : TELEMETRY STATUS DCP: FROM HOME
--- NOTE | 2019-11-02 13:15 | NUR ---
NURSE NOTES: Initially, KCL 60mEq PO scheduled @ 0915 and 1315. Administered 0915 dose as ordered but was not able to administer 1315 medication in proper timeframe due to code blue at other unit. As a code blue team, needed to be present at the other unit. Late administration given on 1420. The patient is stable without acute distress or shortness of breath. Will continue plan of care.
--- NOTE | 2019-11-02 13:45 | Cardiac Electrophysiology PN ---
Assessment/Plan Assessment/Plan 1. Non-ST elevation myocardial infarction without any chest pain. Creatinine is within normal range. Continue aspirin, Lopressor 25 bid and statin. Echocardiogram normal left ventricular systolic function. 2. History of hypertension. On Lopressor 3. Lactic acidosis, PNA and sepsis. On IV antibiotic per Dr. Lawrence. 4. Dementia. DW RN Subjective Subjective No CP. still OB on Abx. Troponin still mildly elevated. RN at bedside. Objective Last 24 Hour Vital Signs Date Time Temp Pulse Resp B/P (MAP) Pulse Ox O2 Delivery O2 Flow Rate FiO2 11/02/19 12:21 97 Nasal Cannula 2.0 28 11/02/19 12:00 71 11/02/19 12:00 98.2 70 18 137/76 (96) 96 11/02/19 09:00 Nasal Cannula 2.0 Nasal Cannula 2.0 11/02/19 08:29 77 153/80 11/02/19 08:00 75 11/02/19 08:00 98.2 77 18 153/80 (104) 96 11/02/19 04:00 97.6 79 18 113/66 (82) 98 11/02/19 04:00 79 11/02/19 00:00 97.3 68 17 111/64 (80) 97 11/02/19 00:00 68 11/01/19 21:21 81 153/77 11/01/19 21:00 Nasal Cannula 3.0 Nasal Cannula 3.0 11/01/19 20:11 96 Nasal Cannula 2.0 28 11/01/19 20:00 81 11/01/19 20:00 97.2 81 16 109/62 (78) 98 11/01/19 16:00 77 11/01/19 16:00 97.9 80 18 152/74 (100) 95 Intake and Output 11/01/19 11/02/19 19:00 07:00 Intake Total 540 ml Balance 540 ml Intake Oral 540 ml # Voids 6 8 # Bowel Movements 6 3 Laboratory Tests Test 11/01/19 22:39 11/02/19 05:40 Troponin I 0.078 ng/mL (0.000-0.056) White Blood Count 10.9 K/UL (4.8-10.8) H Red Blood Count 3.50 M/UL (4.20-5.40) L Hemoglobin 11.3 G/DL (12.0-16.0) L Hematocrit 32.3 % (37.0-47.0) L Mean Corpuscular Volume 92 FL (80-99) Mean Corpuscular Hemoglobin 32.3 PG (27.0-31.0) H Mean Corpuscular Hemoglobin Concent 35.0 G/DL (32.0-36.0) Red Cell Distribution Width 11.3 % (11.6-14.8) L Platelet Count 196 K/UL (150-450) Mean Platelet Volume 6.1 FL (6.5-10.1) L Neutrophils (%) (Auto) % (45.0-75.0) Lymphocytes (%) (Auto) % (20.0-45.0) Monocytes (%) (Auto) % (1.0-10.0) Eosinophils (%) (Auto) % (0.0-3.0) Basophils (%) (Auto) % (0.0-2.0) Differential Total Cells Counted 100 Neutrophils % (Manual) 88 % (45-75) H Lymphocytes % (Manual) 9 % (20-45) L Monocytes % (Manual) 3 % (1-10) Eosinophils % (Manual) 0 % (0-3) Basophils % (Manual) 0 % (0-2) Band Neutrophils 0 % (0-8) Platelet Estimate Adequate Platelet Morphology Normal Red Blood Cell Morphology Normal Sodium Level 147 MMOL/L (136-145) H Potassium Level 2.7 MMOL/L (3.5-5.1) *L Chloride Level 113 MMOL/L (98-107) H Carbon Dioxide Level 24 MMOL/L (21-32) Anion Gap 9 mmol/L (5-15) Blood Urea Nitrogen 10 mg/dL (7-18) Creatinine 0.5 MG/DL (0.55-1.30) L Estimat Glomerular Filtration Rate mL/min (>60) Glucose Level 137 MG/DL (74-106) H Calcium Level 7.4 MG/DL (8.5-10.1) L Magnesium Level 2.0 MG/DL (1.8-2.4) Total Bilirubin 0.5 MG/DL (0.2-1.0) Aspartate Amino Transf (AST/SGOT) 26 U/L (15-37) Alanine Aminotransferase (ALT/SGPT) 16 U/L (12-78) Alkaline Phosphatase 60 U/L (46-116) Total Protein 5.6 G/DL (6.4-8.2) L Albumin 1.9 G/DL (3.4-5.0) L Globulin 3.7 g/dL Albumin/Globulin Ratio 0.5 (1.0-2.7) L Objective HEAD AND NECK: No JVD. LUNGS: Decreased breath sounds. CARDIOVASCULAR: Regular S1 and S2 with no gallop. ABDOMEN: Soft. EXTREMITIES: 1+ pitting edema. Hiram Fraga MD Nov 02, 2019 13:45
--- NOTE | 2019-11-02 14:40 | NUR ---
NURSE NOTES: Dr. St ordered the patient to be transferred to [facility] as the family member's wishes. Will continue plan of care until clarification made.
[2019-11-02 16:00] VITALS: BP 157/76
--- NOTE | 2019-11-02 16:00 | NUR ---
NURSE NOTES: The patient is stable without acute distress or shortness of breath. Will continue plan of care.
--- NOTE | 2019-11-02 16:02 | NUR ---
TRANSFER UPDATE THIS CIRCUIT RIDER SPOKE WITH NANCY CIRCUIT RIDER, ELIDIA BRENNER ~ HE IS NOT IN AGREEMENT WITH TRANSFER. NANCY IS OVER CAPACITY AND HAS BEEN FOR 2 WEEKS. CARE WILL CONTINUE HERE AT [facility] UNTIL DISCHARGE IF SNF IS NEEDED [facility] WILL ASSIST WITH PLACEMENT CIRCUIT RIDER SPOKE WITH DAUGHTER, LEIGHTON AND INFORMED HER OF ABOVE
--- NOTE | 2019-11-02 16:14 | NUR ---
ST NOTE: REFERRED FOR SWALLOW EVAL BY (DR PERSAUD PRIMARY), SEE FULL REPORT. DYSPHAGIA RISK FACTORS FOR THIS 84 Y.O. ADVANCED AGED FEMALE: ACUTE ISSUES: PNEUMONIA (R LL) (PER CXR MULTIPLE RIB FX AND POSSIBLE RIGHT LUNG CONTUSION), SEPSIS (EXPOSED TO SICK FAMILY MEMBER),GENERAL WEAKNESS, POOR INTAKE, RHABDOMYOLYSIS, AKF. MEDS: ZYPREXA, ROBITUSSIN, ATROVENT H/O ALZHEIMER'S DZ DEMENTIA, CVA (NOTED IN MEDICAL RECORD ON 03/11/2012 AT [facility] [place]), MDD, ANXIETY. NO POLST/AD REGARDING TUBE FEEDINGS IF NEEDS. ? DIET AT HOME. NOW ON A LOW NA [facility] SOFT GROUND DIET AND THIN LIQUIDS WITH 0/25/30/50% INTAKE. PATIENT DENIES SWALLOWING PROBLEMS. HAS ONLY UPPER DENTURES AND LOWERS NOT HERE. REFUSED MASTICATED SOLIDS SINCE SHE DOESN'T HAVE HER LOWER DENTURES. 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 GIVEN PUREED, NEEDS 2 SWALLOWS (FAIR HYOLARYNGEAL EXCURSION) TO CLEAR, NO OVERT ASPIRATION GIVEN THIN LIQUIDS VIA STRAW SEQUENTIAL SIPS, ONLY ABLE TO TAKE ONE TO 2 SIPS AT A TIME AND NEEDS TO TAKE A BREATH, GETS SOB BUT RESP RATE (GOES FROM 18 UP TO 20 BPM DOWN WITH RESTING). NO OVERT ASPIRATION BUT HAS RISK IF INCREASED RESP RATE. HAS SILENT ASPIRATION RISK DUE TO ALZHEIMER'S DISEASE DEMENTIA (AND HAS CURRENT PNEUMONIA) POOR AND SLOW INTAKE, POOR APPETITE PRIOR TO ADMIT RECOMMENDATIONS: CONSIDER CONTINUING WITH [facility] SOFT GROUND (DISLIKES PUREED) BUT DOWNGRADE TO NECTAR THICK LIQUIDS FOR NOW WITH POSTED ASPIRATION PRECAUTIONS AND ASSIST WITH MEALS RESP RATE NOT ABOVE 25 BPM SEND HIGH CALORIE SUPPLEMENTS TID AND DIET TYPE PER RD CONSIDER MODIFIED BARIUM SWALLOW STUDY TO FURTHER ASSESS SWALLOW,DETERMINE SILENT ASPIRATION RISK/ETIOLOGY, AND ATTEMPT TRIAL TX SKILLED DYSPHAGIA MANAGEMENT AND TX AND COG-COM EVAL/TX EDUCATED/TRAINED RN (SHAYLA) AND PATIENT IN POSTED ASPIRATION PRECAUTIONS.
--- NOTE | 2019-11-02 19:30 | NUR ---
NURSE NOTES: Received patient from Liza BANSAL. Patient in bed, on 3L NC, no signs of respiratory distress. Bed in low position, locked, bed alarm on, call light within reach. Family at bedside.
[2019-11-02 20:00] VITALS: BP 151/78
[2019-11-02] MEDS: Azithromycin 500 MG in NS 275 ML IV SCH (23:34)
[2019-11-03] VITALS: BP 127/69
[2019-11-03 04:00] VITALS: BP 131/67
--- NOTE | 2019-11-03 07:24 | NUR ---
NURSE NOTES: Received report from Juventino/RN, Patient is awake, lying semi-resendiz's, resting comfortably. On 2L nasal canula, no acute distress/SOB noted. Denies pain at this time. IV on Right FA patent, no bleeding or infiltration noted. Bed in low position and locked, Bed alarm is on, Side-rails up x3. Call light within reach, Encouraged to use call light when needed. Will continue plan of care.
[2019-11-03 07:33] LABS: BASOPHILS % (AUTO) 0.4 % (0.0-2.0); EOSINOPHILS % (AUTO) 0.1 % (0.0-3.0); HEMATOCRIT 32.3 % (37.0-47.0); HEMOGLOBIN 11.4 G/DL (12.0-16.0); LYMPHOCYTES % (AUTO) 16.9 % (20.0-45.0); MEAN CORPUSCULAR VOLUME 91 FL (80-99); MONOCYTES % (AUTO) 11.1 % (1.0-10.0); NEUTROPHILS % (AUTO) 71.6 % (45.0-75.0); PLATELET COUNT 221 K/UL (150-450); RED BLOOD COUNT 3.55 M/UL (4.20-5.40); WHITE BLOOD COUNT 6.5 K/UL (4.8-10.8)
[2019-11-03 07:59] LABS: ALANINE AMINOTRANSFERASE 15 U/L (12-78); ALBUMIN/GLOBULIN RATIO 0.6 (1.0-2.7); ALKALINE PHOSPHATASE 58 U/L (46-116); ANION GAP 7 mmol/L (5-15); ASPARTATE AMINO TRANSFERASE 23 U/L (15-37); BILIRUBIN,TOTAL 0.4 MG/DL (0.2-1.0); BLOOD UREA NITROGEN 9 mg/dL (7-18); CARBON DIOXIDE 28 MMOL/L (21-32); CHLORIDE 113 MMOL/L (98-107); CREATINE KINASE 129 U/L (26-308); CREATININE 0.6 MG/DL (0.55-1.30); POTASSIUM 3.5 MMOL/L (3.5-5.1); SODIUM 148 MMOL/L (136-145)
[2019-11-03 08:00] VITALS: BP 146/81
--- NOTE | 2019-11-03 09:00 | NUR ---
PT EVALUATION NOTE Patient seen for initial evaluation. Patient presents with generalized weakness and decreased balance which impairs patient's ability to perform mobility tasks safely. Patient requires min assist for bed mobility and transfers with FWW. Patient able to ambulate 120 ft with FWW, slowed velocity, slightly unsteady. Patient will benefit from skilled inpatient PT intervention to address strength, balance and safety for increased level of independence with functional mobility. Recommend SNF for short term rehab vs home with home PT and family assistance once medically cleared by MD. Patient has FWW at home, further DME needs to be determined. Addendum: 11/03/19 at 1247 by REGGIE JOVEL PT Amended: Links added.
--- NOTE | 2019-11-03 09:26 | NUR ---
CASE MANAGEMENT:REVIEW 11/03/19 SI: PNEUMONIA. NSTEMI 98.8 74 17 131/67 98% ON 2L/NC H/H-11.4/32.3 NA+148 IS: IV AZITHROMYCIN Q24 IV FLAGYL Q8HRS IV ROCEPHIN Q24 ASA PO QD LOPRESSOR PO Q12 ZYPREXA PO QHS : TELEMETRY STATUS DCP: FROM HOME PLAN: LOW SODIUM DIET
--- NOTE | 2019-11-03 09:41 | General Progress Note ---
Assessment/Plan Problem List: (1) Sepsis ICD Codes: A41.9 - Sepsis, unspecified organism SNOMED: 27717326 (2) Pneumonia involving right lung ICD Codes: J18.9 - Pneumonia, unspecified organism SNOMED: 143073156 (3) Rhabdomyolysis ICD Codes: M62.82 - Rhabdomyolysis SNOMED: 845118836 (4) Ribs, multiple fractures ICD Codes: S22.49XA - Multiple fractures of ribs, unspecified side, initial encounter for closed fracture SNOMED: 8694419 (5) VIOLET (acute kidney injury) ICD Codes: N17.9 - Acute kidney failure, unspecified SNOMED: 6648990, 05967197 (6) Hypokalemia ICD Codes: E87.6 - Hypokalemia SNOMED: 76095992 (7) NSTEMI (non-ST elevated myocardial infarction) ICD Codes: I21.4 - Non-ST elevation (NSTEMI) myocardial infarction SNOMED: 26547738 (8) Diastolic CHF ICD Codes: I50.30 - Unspecified diastolic (congestive) heart failure SNOMED: 05934612, 480045256 (9) Pulmonary hypertension ICD Codes: I27.20 - Pulmonary hypertension, unspecified SNOMED: 50863144 (10) Advanced dementia ICD Codes: F03.90 - Unspecified dementia without behavioral disturbance SNOMED: 24980922 Status: stable Assessment/Plan: 84-year-old female with history of Alzheimer's dementia presents from home with cough and respiratory illness. She was found to have sepsis secondary to community-acquired pneumonia versus UTI, although UA is not impressive. #Sepsis secondary to community acquired pneumonia versus UTI telemetry IV ceftriaxone, azithromycin, add Flagyl for anaerobic coverage Stop IV fluids Follow-up blood cultures Tylenol for fever ID consult, recs appreciated Pulmonary consult with Dr. Eddie Cardoso #Fluid overload. diastolic dysfunction Trial of IV diuresis lasix 20 mg iv bid #VIOLET, prerenal azotemia- improving Monitor renal function after hydration, avoid nephrotoxic medications. Renal consult if creatinine does not improve #Mild rhabdomyolysis Trend CK, will have to stop IVF due to congestion, CK normal now #nstemi continue b erik, statin ASA echo normal ef, diastolic dysfunction, mild mitral regurg, moderate pulmonary htn, TR Cardiology consult, Dr. nair #Hypokalemia Replace potassium, check magnesium #Multiple rib fractures Pain control #Advance dementia VTE prophylaxis: Heparin subcu GI prophylaxis: None indicated CODE STATUS: Full code. This was discussed at length with daughter on the phone. Basically they would want her mom to be full code, attempt resuscitation however if she would not have a meaningful chance of survival to withdraw care. She will come in and fill out a POLST Speech evaluation PT I spent 40 minutes on this encounter. Greater than 50% spent on counseling care portion. Plan of care discussed with consultants, RN and patient's daughter Mojgan. Time of note may not reflect time of encounter Subjective Date patient seen: Nov 03, 2019 ROS Limited/Unobtainable: Yes Allergies: Coded Allergies: No Known Allergies (Unverified , 03/14/12) Subjective poor historian due to advanced dementia. no acute events. clinically stable , no complaints Objective Last 24 Hour Vital Signs Date Time Temp Pulse Resp B/P (MAP) Pulse Ox O2 Delivery O2 Flow Rate FiO2 11/03/19 08:00 97.6 81 20 146/81 (102) 96 11/03/19 07:29 98 Nasal Cannula 2.0 28 11/03/19 04:00 98.8 80 17 131/67 (88) 97 11/03/19 04:00 74 11/03/19 00:00 82 11/03/19 00:00 98.7 78 18 127/69 (88) 97 11/02/19 21:00 Nasal Cannula 3.0 Nasal Cannula 3.0 11/02/19 20:27 102 151/78 11/02/19 20:17 96 Nasal Cannula 2.0 28 11/02/19 20:00 99.0 82 17 151/78 (102) 91 11/02/19 20:00 83 11/02/19 16:00 98.1 79 18 157/76 (103) 95 11/02/19 16:00 84 11/02/19 12:21 97 Nasal Cannula 2.0 28 11/02/19 12:00 71 11/02/19 12:00 98.2 70 18 137/76 (96) 96 Intake and Output 11/02/19 11/03/19 19:00 07:00 Intake Total 1000 ml 240 ml Balance 1000 ml 240 ml Intake Oral 1000 ml 240 ml # Voids 10 3 # Bowel Movements 3 2 Laboratory Tests 11/03/19 05:40: White Blood Count 6.5, Red Blood Count 3.55L, Hemoglobin 11.4L, Hematocrit 32.3L , Mean Corpuscular Volume 91, Mean Corpuscular Hemoglobin 32.0H, Mean Corpuscular Hemoglobin Concent 35.2, Red Cell Distribution Width 11.0L, Platelet Count 221, Mean Platelet Volume 5.4L, Neutrophils (%) (Auto) 71.6, Lymphocytes (%) (Auto) 16.9L, Monocytes (%) (Auto) 11.1H, Eosinophils (%) (Auto ) 0.1, Basophils (%) (Auto) 0.4, Sodium Level 148H, Potassium Level 3.5, Chloride Level 113H, Carbon Dioxide Level 28, Anion Gap 7, Blood Urea Nitrogen 9 , Creatinine 0.6, Estimat Glomerular Filtration Rate , Glucose Level 149H, Calcium Level 8.0L, Total Bilirubin 0.4, Aspartate Amino Transf (AST/SGOT) 23, Alanine Aminotransferase (ALT/SGPT) 15, Alkaline Phosphatase 58, Total Creatine Kinase 129, Pro-B-Type Natriuretic Peptide 2893H, Total Protein 5.6L, Albumin 2.0L, Globulin 3.6, Albumin/Globulin Ratio 0.6L Height (Feet): 5 Height (Inches): 4.00 Weight (Pounds): 113 Objective General Appearance: no apparent distress, alert, thin Head: normocephalic Eyes: bilateral eye normal inspection, bilateral eye PERRL ENT: dry mucus membranes Neck: supple, no meningismus Respiratory: crackles, rales - Right lung Cardiovascular: no edema, tachycardia, no m/r/g Gastrointestinal: normal inspection, non tender, no mass, non-distended, decreased bowel sounds Genitourinary: no CVA tenderness Musculoskeletal: back normal, no calf tenderness Neurologic: alert and oriented to self only, sensory intact, motor weakness - Diffuse Psychiatric: depressed affect Skin: no rash, warm/dry Moy St M.D. Nov 03, 2019 09:41
[2019-11-03] MEDS: Docusate 100mg cap ORAL SCH ×3 (09:44→21:18)
[2019-11-03] MEDS: guaiFENesin ER 600mg tab ORAL SCH ×2 (09:44→17:21)
[2019-11-03] MEDS: Aspirin EC 81mg tab ORAL SCH (09:45)
[2019-11-03] MEDS: Atorvastatin 20mg tab ORAL SCH (09:45)
[2019-11-03] MEDS: Heparin 5000 units/ml inj SUBQ SCH ×2 (09:49→21:20)
[2019-11-03] MEDS: cefTRIAXone 1 GM in NS 55 ML IVPB SCH (09:50)
[2019-11-03 12:00] VITALS: BP 148/69
--- NOTE | 2019-11-03 14:08 | NUR ---
*-* INSURANCE *-* ALL AVAILABLE CLINICALS HAVE BE[phone] fax#[phone]
--- NOTE | 2019-11-03 14:13 | NUR ---
SWALLOW STATUS: PATIENT CLEARED FOR ST INTERVENTION BY ROLF ALBA. PATIENT SEEN FOR DYSPHAGIA TX FOLLOWUP. P.O. TRIALS WITH SOFT SOLIDS AND 4 OZ NECTAR THICK LIQUID: PATIENT PRESENTS LETHARGIC/DIFFICULT TO ALERT TO TASK OF P.O. TRIALS. DECREASED MENTATION/GENERALIZED WEAKNESS RESULTED IN POOR BOLUS ACCEPTANCE, PROLONGED MASTICATION OF SOLIDS AND A DELAYED SWALLOW RESPONSE. IN ADDITION, PATIENT PRESENTS WITH PATTERN OF SUBOPTIMAL P.O. INTAKE/INSUFFICIENT TO SUPPORT NUTRITION/HYDRATION NEEDS. RN/RD TRACKING INTTAKE LEVELS CLOSELY.
--- NOTE | 2019-11-03 14:35 | NUR ---
*-* DISCHARGE PLANNING *-* PATIENT HAS BEEN REFERRED TO: [facility] P; [phone] F: [phone]
--- NOTE | 2019-11-03 15:52 | NUR ---
*-* DISCHARGE PLANNED *-* PATIENT HAS BEEN ACCEPTED AT: [facility] ROOM# [id number] SKILLED [facility] AUTH# [id number] AMBULANCE TO BE USED [facility] T: [phone] AMBULANCE AUTH# [id number] PENDING OFFICIAL ORDER
[2019-11-03 16:00] VITALS: BP 132/73
--- NOTE | 2019-11-03 16:02 | Cardiac Electrophysiology PN ---
Assessment/Plan Assessment/Plan 1. Non-ST elevation myocardial infarction without any chest pain. Creatinine is within normal range. Continue aspirin, Lopressor 25 bid and statin. Echocardiogram normal left ventricular systolic function. 2. Hypertension. On Lopressor 25 bid and Lasix 20 iv bid 3. Lactic acidosis, PNA and sepsis. On IV antibiotic per Dr. Lawrence. 4. Dementia. DW RN Subjective Subjective No CP on Abx. Troponin still mildly elevated. RN at bedside. Objective Last 24 Hour Vital Signs Date Time Temp Pulse Resp B/P (MAP) Pulse Ox O2 Delivery O2 Flow Rate FiO2 11/03/19 12:00 67 11/03/19 12:00 98.1 82 20 148/69 (95) 94 11/03/19 09:45 81 146/81 11/03/19 09:00 Nasal Cannula 3.0 Nasal Cannula 3.0 11/03/19 08:00 97.6 81 20 146/81 (102) 96 11/03/19 08:00 74 11/03/19 07:29 98 Nasal Cannula 2.0 28 11/03/19 04:00 98.8 80 17 131/67 (88) 97 11/03/19 04:00 74 11/03/19 00:00 82 11/03/19 00:00 98.7 78 18 127/69 (88) 97 11/02/19 21:00 Nasal Cannula 3.0 Nasal Cannula 3.0 11/02/19 20:27 102 151/78 11/02/19 20:17 96 Nasal Cannula 2.0 28 11/02/19 20:00 99.0 82 17 151/78 (102) 91 11/02/19 20:00 83 Intake and Output 11/02/19 11/03/19 18:59 06:59 Intake Total 1000 ml 240 ml Balance 1000 ml 240 ml Intake Oral 1000 ml 240 ml # Voids 10 3 # Bowel Movements 3 2 Laboratory Tests Test 11/03/19 05:40 White Blood Count 6.5 K/UL (4.8-10.8) Red Blood Count 3.55 M/UL (4.20-5.40) L Hemoglobin 11.4 G/DL (12.0-16.0) L Hematocrit 32.3 % (37.0-47.0) L Mean Corpuscular Volume 91 FL (80-99) Mean Corpuscular Hemoglobin 32.0 PG (27.0-31.0) H Mean Corpuscular Hemoglobin Concent 35.2 G/DL (32.0-36.0) Red Cell Distribution Width 11.0 % (11.6-14.8) L Platelet Count 221 K/UL (150-450) Mean Platelet Volume 5.4 FL (6.5-10.1) L Neutrophils (%) (Auto) 71.6 % (45.0-75.0) Lymphocytes (%) (Auto) 16.9 % (20.0-45.0) L Monocytes (%) (Auto) 11.1 % (1.0-10.0) H Eosinophils (%) (Auto) 0.1 % (0.0-3.0) Basophils (%) (Auto) 0.4 % (0.0-2.0) Sodium Level 148 MMOL/L (136-145) H Potassium Level 3.5 MMOL/L (3.5-5.1) Chloride Level 113 MMOL/L (98-107) H Carbon Dioxide Level 28 MMOL/L (21-32) Anion Gap 7 mmol/L (5-15) Blood Urea Nitrogen 9 mg/dL (7-18) Creatinine 0.6 MG/DL (0.55-1.30) Estimat Glomerular Filtration Rate mL/min (>60) Glucose Level 149 MG/DL (74-106) H Calcium Level 8.0 MG/DL (8.5-10.1) L Total Bilirubin 0.4 MG/DL (0.2-1.0) Aspartate Amino Transf (AST/SGOT) 23 U/L (15-37) Alanine Aminotransferase (ALT/SGPT) 15 U/L (12-78) Alkaline Phosphatase 58 U/L (46-116) Total Creatine Kinase 129 U/L (26-308) Pro-B-Type Natriuretic Peptide 2893 pg/mL (0-125) H Total Protein 5.6 G/DL (6.4-8.2) L Albumin 2.0 G/DL (3.4-5.0) L Globulin 3.6 g/dL Albumin/Globulin Ratio 0.6 (1.0-2.7) L Objective HEAD AND NECK: No JVD. LUNGS: Decreased breath sounds. CARDIOVASCULAR: Regular S1 and S2 with no gallop. ABDOMEN: Soft. EXTREMITIES: 1+ pitting edema. Hiram Fraga MD Nov 03, 2019 16:02
--- NOTE | 2019-11-03 18:22 | Infectious Diseases Prog Note ---
Assessment/Plan Assessment/Plan ASSESSMENT AND PLAN: 1. pneumonia, ? sepsis, elevated lactic acid - rocephin, flagyl and azithromycin - chest x-ray worse, effusions, ? edema - check sc, legionella, mycoplasma, f/u chest x-ray and labs 2. The patient has history of hypertension. 3. Alzheimer. 4. Dementia. 5. Aspiration risk. 6. Question of hyperlipidemia. 7. Leukopenia and anemia. 8. Hypokalemia. 9. No known drug allergies. 10. Social history is negative. 11. Family history is noncontributory. 12. MAR is noted. 13. Case was discussed with RN. 14. Continue treatment per primary consultants. 15. Orders were noted and entered. Subjective Constitutional: Reports: fatigue; Denies: fever HEENT: Reports: congestion - mild Respiratory: Reports: shortness of breath - mild Neurologic: Denies: headache Psychiatric: Denies: depression Skin: Denies: rash Hematologic: Denies: bleeding Musculoskeletal: Denies: pain Allergies: Coded Allergies: No Known Allergies (Unverified , 03/14/12) Objective Vital Signs Last 24 Hour Vital Signs Date Time Temp Pulse Resp B/P (MAP) Pulse Ox O2 Delivery O2 Flow Rate FiO2 11/03/19 16:00 98.3 71 20 132/73 (92) 96 11/03/19 16:00 70 11/03/19 12:00 67 11/03/19 12:00 98.1 82 20 148/69 (95) 94 11/03/19 09:45 81 146/81 11/03/19 09:00 Nasal Cannula 3.0 Nasal Cannula 3.0 11/03/19 08:00 97.6 81 20 146/81 (102) 96 11/03/19 08:00 74 11/03/19 07:29 98 Nasal Cannula 2.0 28 11/03/19 04:00 98.8 80 17 131/67 (88) 97 11/03/19 04:00 74 11/03/19 00:00 82 11/03/19 00:00 98.7 78 18 127/69 (88) 97 11/02/19 21:00 Nasal Cannula 3.0 Nasal Cannula 3.0 11/02/19 20:27 102 151/78 11/02/19 20:17 96 Nasal Cannula 2.0 28 11/02/19 20:00 99.0 82 17 151/78 (102) 91 11/02/19 20:00 83 Height (Feet): 5 Height (Inches): 4.00 Weight (Pounds): 113 General Appearance: no acute distress HEENT: normocephalic, atraumatic, anicteric, mucous membranes moist Respiratory/Chest: crackles/rales, rhonchi - bilaterally Cardiovascular: normal rate, regular rhythm, no gallop/murmur, no JVD Abdomen: normal bowel sounds, soft, non tender, no organomegaly, non distended Genitourinary: other - no mccurdy Extremities: no cyanosis Skin: no rash Neurologic/Psychiatric: circulation assistant II-XII grossly normal, alert, oriented x 3, responsive Lymphatic: no neck adenopathy Musculoskeletal: no effusion Objective Chest x-ray - 11/02/29 - Procedure: XRAY Chest 1v Indication: Cough Technique: One view of the chest Comparison: 10/30/2019 Findings: Interim marked increase in dense consolidation in the right lung, especially in the right upper lobe but also in the right perihilar region and right lung base. There is probably increased pleural fluid on the right. There is increased pleural fluid on the left. There is increased interstitial congestion on the left. The heart is upper limits normal in size. The aorta is tortuous ectatic and calcified. Right rib fracture deformities are again demonstrated Impression: Over 3 days, markedly increased right upper lobe and right mid and lower lung infiltrates versus edema. Increased bilateral pleural fluid none Laboratory Tests Test 11/03/19 05:40 White Blood Count 6.5 K/UL (4.8-10.8) Red Blood Count 3.55 M/UL (4.20-5.40) L Hemoglobin 11.4 G/DL (12.0-16.0) L Hematocrit 32.3 % (37.0-47.0) L Mean Corpuscular Volume 91 FL (80-99) Mean Corpuscular Hemoglobin 32.0 PG (27.0-31.0) H Mean Corpuscular Hemoglobin Concent 35.2 G/DL (32.0-36.0) Red Cell Distribution Width 11.0 % (11.6-14.8) L Platelet Count 221 K/UL (150-450) Mean Platelet Volume 5.4 FL (6.5-10.1) L Neutrophils (%) (Auto) 71.6 % (45.0-75.0) Lymphocytes (%) (Auto) 16.9 % (20.0-45.0) L Monocytes (%) (Auto) 11.1 % (1.0-10.0) H Eosinophils (%) (Auto) 0.1 % (0.0-3.0) Basophils (%) (Auto) 0.4 % (0.0-2.0) Sodium Level 148 MMOL/L (136-145) H Potassium Level 3.5 MMOL/L (3.5-5.1) Chloride Level 113 MMOL/L (98-107) H Carbon Dioxide Level 28 MMOL/L (21-32) Anion Gap 7 mmol/L (5-15) Blood Urea Nitrogen 9 mg/dL (7-18) Creatinine 0.6 MG/DL (0.55-1.30) Estimat Glomerular Filtration Rate mL/min (>60) Glucose Level 149 MG/DL (74-106) H Calcium Level 8.0 MG/DL (8.5-10.1) L Total Bilirubin 0.4 MG/DL (0.2-1.0) Aspartate Amino Transf (AST/SGOT) 23 U/L (15-37) Alanine Aminotransferase (ALT/SGPT) 15 U/L (12-78) Alkaline Phosphatase 58 U/L (46-116) Total Creatine Kinase 129 U/L (26-308) Pro-B-Type Natriuretic Peptide 2893 pg/mL (0-125) H Total Protein 5.6 G/DL (6.4-8.2) L Albumin 2.0 G/DL (3.4-5.0) L Globulin 3.6 g/dL Albumin/Globulin Ratio 0.6 (1.0-2.7) L Current Medications Medications (Trade) Dose Ordered Sig/Khang Route PRN Reason Start Time Stop Time Status Last Admin Dose Admin Acetaminophen (Tylenol) 650 mg Q4H PRN ORAL Mild Pain (Pain Scale 1-3) 10/30/19 22:45 11/29/19 22:44 11/02/19 05:43 Acetaminophen (Tylenol) 650 mg Q4H PRN ORAL fever 10/30/19 22:45 11/29/19 22:44 Acetaminophen (Tylenol) 650 mg Q4H PRN RECTAL Mild Pain (Pain Scale 1-3) 10/30/19 22:45 11/29/19 22:44 Acetaminophen (Tylenol) 650 mg Q4H PRN RECTAL fever 10/30/19 22:45 11/29/19 22:44 Aspirin (Ecotrin) 81 mg DAILY ORAL 11/01/19 09:00 12/01/19 08:59 11/03/19 09:45 Atorvastatin Calcium (Lipitor) 40 mg DAILY ORAL 11/01/19 09:00 12/01/19 08:59 11/03/19 09:45 Azithromycin 500 mg/Sodium Chloride 275 ml @ 275 mls/hr Q24H IV 10/31/19 23:00 11/07/19 22:59 11/02/19 23:34 Ceftriaxone Sodium 1 gm/ Sodium Chloride 55 ml @ 110 mls/hr Q24HRS IVPB 10/31/19 09:00 11/07/19 08:59 11/03/19 09:50 Dextrose (Dextrose 50%) 25 ml Q30M PRN IV Hypoglycemia 10/31/19 13:30 11/30/19 13:29 Dextrose (Dextrose 50%) 50 ml Q30M PRN IV Hypoglycemia 10/31/19 13:30 11/30/19 13:29 Docusate Sodium (Colace) 100 mg EVERY 12 HOURS ORAL 10/31/19 09:00 11/30/19 08:59 11/03/19 17:21 Furosemide (Lasix) 20 mg EVERY 12 HOURS IV 11/03/19 09:45 12/03/19 09:44 11/03/19 09:53 Guaifenesin (Mucinex ER) 600 mg TWICE A DAY ORAL 11/01/19 09:00 12/01/19 08:59 11/03/19 17:21 Guaifenesin (Robitussin) 100 mg Q4H PRN ORAL For Cough 11/01/19 08:45 12/01/19 08:44 Heparin Sodium (Porcine) (Heparin 5000 units/ml) 5,000 units EVERY 12 HOURS SUBQ 10/31/19 09:00 11/30/19 08:59 11/03/19 09:49 Hydromorphone HCl (Dilaudid) 0.5 mg Q4H PRN IVP For Pain moderate 4-6 10/31/19 13:30 11/07/19 13:29 Ipratropium [place] (Atrovent) 500 mcg Q4H PRN HHN Shortness of Breath 10/31/19 13:30 11/05/19 13:29 Metoprolol Tartrate (Lopressor) 25 mg Q12HR ORAL 10/31/19 21:00 11/30/19 20:59 11/03/19 09:45 Metronidazole 100 ml @ 100 mls/hr Q8HR IVPB 10/31/19 14:00 11/07/19 13:59 11/03/19 13:48 Olanzapine (ZyPREXA) 5 mg QHS ORAL 11/01/19 21:00 12/02/19 08:59 11/02/19 20:26 Ondansetron HCl (Zofran) 4 mg Q6H PRN IVP Nausea & Vomiting 10/30/19 22:45 11/29/19 22:44 Polyethylene Glycol (Miralax) 17 gm DAILYPRN PRN ORAL Constipation 10/30/19 22:45 11/29/19 22:44 Susana Lawrence MD Nov 03, 2019 18:22
--- NOTE | 2019-11-03 19:10 | NUR ---
NURSE NOTES: Received pt and report from ROLF Muse. Observed pt resting in bed with both eyes open and family member at bedside. Pt is A/Ox2. potline monitor is in placed; pt is NSR. IV site intact, asymptomatic, and patent. Bed is in the lowest position and locked. Call light and bedside table is within reach. No signs/symptoms of acute distress noted at this time. Will continue plan of care.
--- NOTE | 2019-11-03 19:18 | NUR ---
HAND-OFF: Report given to Reina/RN, Patient is in stable condition, Son at bed side. Endorsed plan of care.
[2019-11-03 20:00] VITALS: BP 142/78
--- NOTE | 2019-11-03 20:05 | Pulmonology Progress Note ---
Assessment/Plan Problems: (1) Right upper lobe pneumonia (2) Right lower lobe pneumonia (3) Pleural effusion, left (4) NSTEMI (non-ST elevated myocardial infarction) (5) Pneumonia involving right lung (6) Sepsis Assessment/Plan ASSESSMENT: The patient is an 84-year-old female with a history of dementia, hypertension, hyperlipidemia, presenting with a respiratory illness, likely community-acquired pneumonia with possible aspiration plus or minus an antecedent viral illness. She is fairly stable from respiratory standpoint. PROBLEM LIST: 1. Community-acquired pneumonia with possible aspiration. 2. Right-sided infiltrate secondary to above. 3. Hypoxemia secondary to above. 4. Advanced dementia. 5. Electrolyte abnormalities. 6. Rhabdomyolysis. 7. Lactic acidosis, resolved. 8. Non ST-elevation RI, likely demand ischemia, troponins are down trending. 9. Anemia. 10. Alzheimer's dementia. 11. Hypertension. 12. Hyperlipidemia. TREATMENT PLAN: 1. Optimize pulmonary hygiene/mobilize as tolerated. 2. P.r.n. O2. 3. [id number] and p.r.n. bronchodilators. 4. Antibiotics per ID (Rocephin, Flagyl, azithromycin). 5. Monitor volumes and renal function, spot dose lasix as able 6. Follow up Cardiology recommendations. 7. Mucinex and p.r.n. Robitussin. 8. Swallow evaluation. 9. Aspiration precautions. 10. DVT prophylaxis, heparin subcutaneous. 11. The patient is a Full Code, continue to discuss goals of care. Subjective Allergies: Coded Allergies: No Known Allergies (Unverified , 03/14/12) Subjective AFVSS on 2-3L + cough + SOB no FC no CP Better with lasix Objective Last 24 Hour Vital Signs Date Time Temp Pulse Resp B/P (MAP) Pulse Ox O2 Delivery O2 Flow Rate FiO2 11/03/19 19:46 97 Nasal Cannula 2.0 28 11/03/19 16:00 98.3 71 20 132/73 (92) 96 11/03/19 16:00 70 11/03/19 12:00 67 11/03/19 12:00 98.1 82 20 148/69 (95) 94 11/03/19 09:45 81 146/81 11/03/19 09:00 Nasal Cannula 3.0 Nasal Cannula 3.0 1/30/20 08:00 97.6 81 20 146/81 (102) 96 11/03/19 08:00 74 11/03/19 07:29 98 Nasal Cannula 2.0 28 11/03/19 04:00 98.8 80 17 131/67 (88) 97 11/03/19 04:00 74 11/03/19 00:00 82 11/03/19 00:00 98.7 78 18 127/69 (88) 97 11/02/19 21:00 Nasal Cannula 3.0 Nasal Cannula 3.0 11/02/19 20:27 102 151/78 11/02/19 20:17 96 Nasal Cannula 2.0 28 Intake and Output 11/02/19 11/03/19 19:00 07:00 Intake Total 1000 ml 240 ml Balance 1000 ml 240 ml Intake Oral 1000 ml 240 ml # Voids 10 3 # Bowel Movements 3 2 General Appearance: WD/WN, no acute distress HEENT: normocephalic, atraumatic, anicteric, mucous membranes moist Respiratory/Chest: crackles/rales, rhonchi Cardiovascular: normal peripheral pulses, normal rate, regular rhythm Abdomen: normal bowel sounds, soft, non tender, no organomegaly, non distended Extremities: no cyanosis, no clubbing, no edema Laboratory Tests 11/03/19 05:40: White Blood Count 6.5, Red Blood Count 3.55L, Hemoglobin 11.4L, Hematocrit 32.3L , Mean Corpuscular Volume 91, Mean Corpuscular Hemoglobin 32.0H, Mean Corpuscular Hemoglobin Concent 35.2, Red Cell Distribution Width 11.0L, Platelet Count 221, Mean Platelet Volume 5.4L, Neutrophils (%) (Auto) 71.6, Lymphocytes (%) (Auto) 16.9L, Monocytes (%) (Auto) 11.1H, Eosinophils (%) (Auto ) 0.1, Basophils (%) (Auto) 0.4, Sodium Level 148H, Potassium Level 3.5, Chloride Level 113H, Carbon Dioxide Level 28, Anion Gap 7, Blood Urea Nitrogen 9 , Creatinine 0.6, Estimat Glomerular Filtration Rate , Glucose Level 149H, Calcium Level 8.0L, Total Bilirubin 0.4, Aspartate Amino Transf (AST/SGOT) 23, Alanine Aminotransferase (ALT/SGPT) 15, Alkaline Phosphatase 58, Total Creatine Kinase 129, Pro-B-Type Natriuretic Peptide 2893H, Total Protein 5.6L, Albumin 2.0L, Globulin 3.6, Albumin/Globulin Ratio 0.6L 11/03/19 06:40: Mycoplasma pneumoniae IgG Antibody [Pending], Mycoplasma pneumoniae IgM Ab Titer [Pending] Current Medications Medications (Trade) Dose Ordered Sig/Khang Route PRN Reason Start Time Stop Time Status Last Admin Dose Admin Acetaminophen (Tylenol) 650 mg Q4H PRN ORAL Mild Pain (Pain Scale 1-3) 10/30/19 22:45 11/29/19 22:44 11/02/19 05:43 Acetaminophen (Tylenol) 650 mg Q4H PRN ORAL fever 10/30/19 22:45 11/29/19 22:44 Acetaminophen (Tylenol) 650 mg Q4H PRN RECTAL Mild Pain (Pain Scale 1-3) 10/30/19 22:45 11/29/19 22:44 Acetaminophen (Tylenol) 650 mg Q4H PRN RECTAL fever 10/30/19 22:45 11/29/19 22:44 Aspirin (Ecotrin) 81 mg DAILY ORAL 11/01/19 09:00 12/01/19 08:59 11/03/19 09:45 Atorvastatin Calcium (Lipitor) 40 mg DAILY ORAL 11/01/19 09:00 12/01/19 08:59 11/03/19 09:45 Azithromycin 500 mg/Sodium Chloride 275 ml @ 275 mls/hr Q24H IV 10/31/19 23:00 11/07/19 22:59 11/02/19 23:34 Ceftriaxone Sodium 1 gm/ Sodium Chloride 55 ml @ 110 mls/hr Q24HRS IVPB 10/31/19 09:00 11/07/19 08:59 11/03/19 09:50 Dextrose (Dextrose 50%) 25 ml Q30M PRN IV Hypoglycemia 10/31/19 13:30 11/30/19 13:29 Dextrose (Dextrose 50%) 50 ml Q30M PRN IV Hypoglycemia 10/31/19 13:30 11/30/19 13:29 Docusate Sodium (Colace) 100 mg EVERY 12 HOURS ORAL 10/31/19 09:00 11/30/19 08:59 11/03/19 17:21 Furosemide (Lasix) 20 mg EVERY 12 HOURS IV 11/03/19 09:45 12/03/19 09:44 11/03/19 09:53 Guaifenesin (Mucinex ER) 600 mg TWICE A DAY ORAL 11/01/19 09:00 12/01/19 08:59 11/03/19 17:21 Guaifenesin (Robitussin) 100 mg Q4H PRN ORAL For Cough 11/01/19 08:45 12/01/19 08:44 Heparin Sodium (Porcine) (Heparin 5000 units/ml) 5,000 units EVERY 12 HOURS SUBQ 10/31/19 09:00 11/30/19 08:59 11/03/19 09:49 Hydromorphone HCl (Dilaudid) 0.5 mg Q4H PRN IVP For Pain moderate 4-6 10/31/19 13:30 11/07/19 13:29 Ipratropium [place] (Atrovent) 500 mcg Q4H PRN HHN Shortness of Breath 10/31/19 13:30 11/05/19 13:29 Metoprolol Tartrate (Lopressor) 25 mg Q12HR ORAL 10/31/19 21:00 11/30/19 20:59 11/03/19 09:45 Metronidazole 100 ml @ 100 mls/hr Q8HR IVPB 10/31/19 14:00 11/07/19 13:59 11/03/19 13:48 Olanzapine (ZyPREXA) 5 mg QHS ORAL 11/01/19 21:00 12/02/19 08:59 11/02/19 20:26 Ondansetron HCl (Zofran) 4 mg Q6H PRN IVP Nausea & Vomiting 10/30/19 22:45 11/29/19 22:44 Polyethylene Glycol (Miralax) 17 gm DAILYPRN PRN ORAL Constipation 10/30/19 22:45 11/29/19 22:44 Eddie Cardoso MD Nov 03, 2019 20:05
[2019-11-03] MEDS: Azithromycin 500 MG in NS 275 ML IV SCH (23:40)
[2019-11-04] VITALS: BP 145/83
[2019-11-04 04:00] VITALS: BP 136/86
[2019-11-04 06:56] LABS: BASOPHILS % (AUTO) 0.7 % (0.0-2.0); EOSINOPHILS % (AUTO) 0.5 % (0.0-3.0); HEMATOCRIT 35.7 % (37.0-47.0); HEMOGLOBIN 12.4 G/DL (12.0-16.0); LYMPHOCYTES % (AUTO) 28.8 % (20.0-45.0); MEAN CORPUSCULAR VOLUME 91 FL (80-99); MONOCYTES % (AUTO) 16.7 % (1.0-10.0); NEUTROPHILS % (AUTO) 53.4 % (45.0-75.0); PLATELET COUNT 284 K/UL (150-450); RED BLOOD COUNT 3.93 M/UL (4.20-5.40); RED CELL DISTRIBUTION WIDTH 10.9 % (11.6-14.8); WHITE BLOOD COUNT 5.1 K/UL (4.8-10.8)
[2019-11-04 07:12] LABS: ANION GAP 5 mmol/L (5-15); BLOOD UREA NITROGEN 13 mg/dL (7-18); CALCIUM 8.1 MG/DL (8.5-10.1); CARBON DIOXIDE 34 MMOL/L (21-32); CHLORIDE 108 MMOL/L (98-107); CREATININE 0.6 MG/DL (0.55-1.30); SODIUM 147 MMOL/L (136-145)
--- NOTE | 2019-11-04 07:23 | NUR ---
NURSE NOTES: Received report from ROLF Huang. Pt in bed, awake, talkative, no c/o pain, no apparent distress noted, breakfast tray set up, discussed plan of care with pt and need for sputum culture and urine specimen, bed in lowest position, call light within reach.
--- NOTE | 2019-11-04 07:37 | NUR ---
HAND-OFF: Report given to ROLF Avilez. Plan of care endorsed.
[2019-11-04 08:00] VITALS: BP 150/77
[2019-11-04 08:38] LABS: POTASSIUM 2.5 MMOL/L (3.5-5.1)
--- NOTE | 2019-11-04 09:15 | NUR ---
RADIOLOGY DEPT., CHEST X-RAY DONE.-P.DYE
[2019-11-04] MEDS ORDERED: Lisinopril 20mg tab ORAL SCH (09:30)
[2019-11-04] MEDS: cefTRIAXone 1 GM in NS 55 ML IVPB SCH (10:09)
[2019-11-04] MEDS: Aspirin EC 81mg tab ORAL SCH (10:10)
[2019-11-04] MEDS: Docusate 100mg cap ORAL SCH (10:11)
[2019-11-04] MEDS: guaiFENesin ER 600mg tab ORAL SCH (10:11)
[2019-11-04] MEDS: Atorvastatin 20mg tab ORAL SCH (10:12)
[2019-11-04] MEDS: Heparin 5000 units/ml inj SUBQ SCH (10:13)
--- NOTE | 2019-11-04 10:13 | Pulmonology Progress Note ---
Assessment/Plan Assessment/Plan Pulmonary Progress Note Problems: (1) Right upper lobe pneumonia (2) Right lower lobe pneumonia (3) Pleural effusion, left (4) NSTEMI (non-ST elevated myocardial infarction) (5) Pneumonia involving right lung (6) Sepsis Assessment/Plan ASSESSMENT: The patient is an 84-year-old female with a history of dementia, hypertension, hyperlipidemia, presenting with a respiratory illness, likely community-acquired pneumonia with possible aspiration plus or minus an antecedent viral illness. She is fairly stable from respiratory standpoint. PROBLEM LIST: 1. Community-acquired pneumonia with possible aspiration. 2. Right-sided infiltrate secondary to above. 3. Hypoxemia secondary to above. 4. Advanced dementia. 5. Electrolyte abnormalities. 6. Rhabdomyolysis. 7. Lactic acidosis, resolved. 8. Non ST-elevation AL, likely demand ischemia, troponins are down trending. 9. Elevated NPA - possible CHF 10. Anemia. 11. Alzheimer's dementia. 12. Hypertension. 12. Hyperlipidemia. TREATMENT PLAN: 1. Optimize pulmonary hygiene/mobilize as tolerated. 2. P.r.n. O2. 3. Bronchodilators. 4. Antibiotics per ID 5. Monitor volumes and renal function, spot dose lasix as able 6. Follow up Cardiology recommendations. 7. Mucinex and p.r.n. Robitussin. 8. Swallow evaluation. 9. Aspiration precautions. 10. DVT prophylaxis, heparin subcutaneous. 11. The patient is a Full Code, continue to discuss goals of care. Subjective Allergies: Coded Allergies: No Known Allergies (Unverified , 03/14/12) Subjective AFVSS on 2L + cough + SOB no FC no CP Better with lasix Objective Vital Signs Noted General Appearance: WD/WN, no acute distress HEENT: normocephalic, atraumatic, anicteric, mucous membranes moist Respiratory/Chest: crackles/rales, rhonchi Cardiovascular: normal peripheral pulses, normal rate, regular rhythm Abdomen: normal bowel sounds, soft, non tender, no organomegaly, non distended Extremities: no cyanosis, no clubbing, no edema Laboratory Tests 11/03/19 05:40: White Blood Count 6.5, Red Blood Count 3.55L, Hemoglobin 11.4L, Hematocrit 32.3L , Mean Corpuscular Volume 91, Mean Corpuscular Hemoglobin 32.0H, Mean Corpuscular Hemoglobin Concent 35.2, Red Cell Distribution Width 11.0L, Platelet Count 221, Mean Platelet Volume 5.4L, Neutrophils (%) (Auto) 71.6, Lymphocytes (%) (Auto) 16.9L, Monocytes (%) (Auto) 11.1H, Eosinophils (%) (Auto ) 0.1, Basophils (%) (Auto) 0.4, Sodium Level 148H, Potassium Level 3.5, Chloride Level 113H, Carbon Dioxide Level 28, Anion Gap 7, Blood Urea Nitrogen 9 , Creatinine 0.6, Estimat Glomerular Filtration Rate , Glucose Level 149H, Calcium Level 8.0L, Total Bilirubin 0.4, Aspartate Amino Transf (AST/SGOT) 23, Alanine Aminotransferase (ALT/SGPT) 15, Alkaline Phosphatase 58, Total Creatine Kinase 129, Pro-B-Type Natriuretic Peptide 2893H, Total Protein 5.6L, Albumin 2.0L, Globulin 3.6, Albumin/Globulin Ratio 0.6L 11/03/19 06:40: Mycoplasma pneumoniae IgG Antibody [Pending], Mycoplasma pneumoniae IgM Ab Titer [Pending] Current Medications Medications (Trade) Dose Ordered Sig/Khang Route PRN Reason Start Time Stop Time Status Last Admin Dose Admin Acetaminophen (Tylenol) 650 mg Q4H PRN ORAL Mild Pain (Pain Scale 1-3) 10/30/19 22:45 11/29/19 22:44 11/02/19 05:43 Acetaminophen (Tylenol) 650 mg Q4H PRN ORAL fever 10/30/19 22:45 11/29/19 22:44 Acetaminophen (Tylenol) 650 mg Q4H PRN RECTAL Mild Pain (Pain Scale 1-3) 10/30/19 22:45 11/29/19 22:44 Acetaminophen (Tylenol) 650 mg Q4H PRN RECTAL fever 10/30/19 22:45 11/29/19 22:44 Aspirin (Ecotrin) 81 mg DAILY ORAL 11/01/19 09:00 12/01/19 08:59 11/03/19 09:45 Atorvastatin Calcium (Lipitor) 40 mg DAILY ORAL 11/01/19 09:00 12/01/19 08:59 11/03/19 09:45 Azithromycin 500 mg/Sodium Chloride 275 ml @ 275 mls/hr Q24H IV 10/31/19 23:00 11/07/19 22:59 11/02/19 23:34 Ceftriaxone Sodium 1 gm/ Sodium Chloride 55 ml @ 110 mls/hr Q24HRS IVPB 10/31/19 09:00 11/07/19 08:59 11/03/19 09:50 Dextrose (Dextrose 50%) 25 ml Q30M PRN IV Hypoglycemia 10/31/19 13:30 11/30/19 13:29 Dextrose (Dextrose 50%) 50 ml Q30M PRN IV Hypoglycemia 10/31/19 13:30 11/30/19 13:29 Docusate Sodium (Colace) 100 mg EVERY 12 HOURS ORAL 10/31/19 09:00 11/30/19 08:59 11/03/19 17:21 Furosemide (Lasix) 20 mg EVERY 12 HOURS IV 11/03/19 09:45 12/03/19 09:44 11/03/19 09:53 Guaifenesin (Mucinex ER) 600 mg TWICE A DAY ORAL 11/01/19 09:00 12/01/19 08:59 11/03/19 17:21 Guaifenesin (Robitussin) 100 mg Q4H PRN ORAL For Cough 11/01/19 08:45 12/01/19 08:44 Heparin Sodium (Porcine) (Heparin 5000 units/ml) 5,000 units EVERY 12 HOURS SUBQ 10/31/19 09:00 11/30/19 08:59 11/03/19 09:49 Hydromorphone HCl (Dilaudid) 0.5 mg Q4H PRN IVP For Pain moderate 4-6 10/31/19 13:30 11/07/19 13:29 Ipratropium [place] (Atrovent) 500 mcg Q4H PRN HHN Shortness of Breath 10/31/19 13:30 11/05/19 13:29 Metoprolol Tartrate (Lopressor) 25 mg Q12HR ORAL 10/31/19 21:00 11/30/19 20:59 11/03/19 09:45 Metronidazole 100 ml @ 100 mls/hr Q8HR IVPB 10/31/19 14:00 11/07/19 13:59 11/03/19 13:48 Olanzapine (ZyPREXA) 5 mg QHS ORAL 11/01/19 21:00 12/02/19 08:59 11/02/19 20:26 Ondansetron HCl (Zofran) 4 mg Q6H PRN IVP Nausea & Vomiting 10/30/19 22:45 11/29/19 22:44 Polyethylene Glycol (Miralax) 17 gm DAILYPRN PRN ORAL Constipation 10/30/19 22:45 11/29/19 22:44 Subjective ROS Limited/Unobtainable: No Allergies: Coded Allergies: No Known Allergies (Unverified , 03/14/12) Objective Last 24 Hour Vital Signs Date Time Temp Pulse Resp B/P (MAP) Pulse Ox O2 Delivery O2 Flow Rate FiO2 11/04/19 09:01 98 Nasal Cannula 2.0 28 11/04/19 08:22 Nasal Cannula 2.0 11/04/19 08:00 97.9 68 17 150/77 (101) 95 11/04/19 04:00 98.5 71 17 136/86 (103) 95 11/04/19 04:00 63 11/04/19 00:00 98.7 67 17 145/83 (103) 95 11/04/19 00:00 65 11/03/19 21:19 75 142/78 11/03/19 21:00 Nasal Cannula 2.0 Nasal Cannula 2.0 11/03/19 20:00 99.0 75 19 142/78 (99) 95 11/03/19 20:00 77 11/03/19 19:46 97 Nasal Cannula 2.0 28 11/03/19 16:00 98.3 71 20 132/73 (92) 96 11/03/19 16:00 70 11/03/19 12:00 67 11/03/19 12:00 98.1 82 20 148/69 (95) 94 Intake and Output 11/03/19 11/04/19 19:00 07:00 Output Total 400 ml 700 ml Balance -400 ml -700 ml Output Urine Total 400 ml 700 ml # Voids 1 Laboratory Tests 11/04/19 06:05: White Blood Count 5.1, Red Blood Count 3.93L, Hemoglobin 12.4, Hematocrit 35.7L , Mean Corpuscular Volume 91, Mean Corpuscular Hemoglobin 31.7H, Mean Corpuscular Hemoglobin Concent 34.9, Red Cell Distribution Width 10.9L, Platelet Count 284, Mean Platelet Volume 5.6L, Neutrophils (%) (Auto) 53.4, Lymphocytes (%) (Auto) 28.8, Monocytes (%) (Auto) 16.7H, Eosinophils (%) (Auto) 0.5, Basophils (%) (Auto) 0.7, Sodium Level 147H, Potassium Level 2.5*L, Chloride Level 108H, Carbon Dioxide Level 34H, Anion Gap 5, Blood Urea Nitrogen 13, Creatinine 0.6, Estimat Glomerular Filtration Rate , Glucose Level 147H, Hemoglobin A1c 6.9H, Calcium Level 8.1L, Pro-B-Type Natriuretic Peptide 1523H Current Medications Medications (Trade) Dose Ordered Sig/Khang Route PRN Reason Start Time Stop Time Status Last Admin Dose Admin Acetaminophen (Tylenol) 650 mg Q4H PRN ORAL Mild Pain (Pain Scale 1-3) 10/30/19 22:45 11/29/19 22:44 11/02/19 05:43 Acetaminophen (Tylenol) 650 mg Q4H PRN ORAL fever 10/30/19 22:45 11/29/19 22:44 Acetaminophen (Tylenol) 650 mg Q4H PRN RECTAL Mild Pain (Pain Scale 1-3) 10/30/19 22:45 11/29/19 22:44 Acetaminophen (Tylenol) 650 mg Q4H PRN RECTAL fever 10/30/19 22:45 11/29/19 22:44 Aspirin (Ecotrin) 81 mg DAILY ORAL 11/01/19 09:00 12/01/19 08:59 11/03/19 09:45 Atorvastatin Calcium (Lipitor) 40 mg DAILY ORAL 11/01/19 09:00 12/01/19 08:59 11/03/19 09:45 Azithromycin 500 mg/Sodium Chloride 275 ml @ 275 mls/hr Q24H IV 10/31/19 23:00 11/07/19 22:59 11/03/19 23:40 Ceftriaxone Sodium 1 gm/ Sodium Chloride 55 ml @ 110 mls/hr Q24HRS IVPB 10/31/19 09:00 11/07/19 08:59 11/03/19 09:50 Dextrose (Dextrose 50%) 25 ml Q30M PRN IV Hypoglycemia 10/31/19 13:30 11/30/19 13:29 Dextrose (Dextrose 50%) 50 ml Q30M PRN IV Hypoglycemia 10/31/19 13:30 11/30/19 13:29 Docusate Sodium (Colace) 100 mg EVERY 12 HOURS ORAL 10/31/19 09:00 11/30/19 08:59 11/03/19 21:18 Guaifenesin (Mucinex ER) 600 mg TWICE A DAY ORAL 11/01/19 09:00 12/01/19 08:59 11/03/19 17:21 Guaifenesin (Robitussin) 100 mg Q4H PRN ORAL For Cough 11/01/19 08:45 12/01/19 08:44 Heparin Sodium (Porcine) (Heparin 5000 units/ml) 5,000 units EVERY 12 HOURS SUBQ 10/31/19 09:00 11/30/19 08:59 11/03/19 21:20 Hydromorphone HCl (Dilaudid) 0.5 mg Q4H PRN IVP For Pain moderate 4-6 10/31/19 13:30 11/07/19 13:29 Ipratropium [place] (Atrovent) 500 mcg Q4H PRN HHN Shortness of Breath 10/31/19 13:30 11/05/19 13:29 Lisinopril (PriniviL) 20 mg DAILY ORAL 11/04/19 09:30 12/04/19 09:29 Metoprolol Tartrate (Lopressor) 25 mg Q12HR ORAL 10/31/19 21:00 11/30/19 20:59 11/03/19 21:19 Metronidazole 100 ml @ 100 mls/hr Q8HR IVPB 10/31/19 14:00 11/07/19 13:59 11/04/19 05:55 Olanzapine (ZyPREXA) 5 mg QHS ORAL 11/01/19 21:00 12/02/19 08:59 11/03/19 21:18 Ondansetron HCl (Zofran) 4 mg Q6H PRN IVP Nausea & Vomiting 10/30/19 22:45 11/29/19 22:44 Polyethylene Glycol (Miralax) 17 gm DAILYPRN PRN ORAL Constipation 10/30/19 22:45 11/29/19 22:44 Potassium Chloride (K-Dur) 40 meq DAILY ORAL 11/05/19 09:00 12/05/19 08:59 Potassium Chloride (K-Dur) 60 meq ONCE ORAL 11/04/19 09:30 11/04/19 11:00 Potassium Chloride (K-Dur) 60 meq ONCE ORAL 11/04/19 16:00 11/04/19 18:00 Riky Matos MD Nov 04, 2019 10:13
--- NOTE | 2019-11-04 10:31 | NUR ---
RD ASSESSMENT & RECOMMENDATIONS SEE CARE ACTIVITY FOR COMPLETE ASSESSMENT DAILY ESTIMATED NEEDS: Needs based on pulmonary, cardiac 47.9kg 25-30 kcals/kg 0881-9919 total kcals 1-1.5 g protein/kg 48-72 g total protein 20-25 mL/kg 958-1198 total fluid mLs NUTRITION DIAGNOSIS: Swallowing difficulty r/t dysphagia as evidenced by [employer] TECHNICIAN madelin, pt currently on ms ground texture diet w/ NTL, poor to fair po intake CURRENT DIET: Low Na MS ground w/ NTL PO DIET RECOMMENDATIONS: Low Na diet / texture per [employer] TECHNICIAN ADDITIONAL RECOMMENDATIONS: 1) Fair to poor po intake, consider non oral feeds w/ continued suboptimal po, pt is full code 2) maintain Ensure Enlive w/ meals and monitor intake and accu-check; need for Glucerna 3) Possible water deficits, rec IVF as able 4) Calibrated bed scale wts 5) 1:1 feeds, mealtime assistance
--- NOTE | 2019-11-04 10:34 | Cardiac Electrophysiology PN ---
Assessment/Plan Assessment/Plan 1. Non-ST elevation myocardial infarction without any chest pain. Creatinine is within normal range. Continue aspirin, Lopressor 25 bid and Lipitor 40 daily Echocardiogram normal left ventricular systolic function. 2. Hypertension. On Lopressor 25 bid and lisinopril 20 daily. Lasix DCed 3. Lactic acidosis, PNA and sepsis. On IV antibiotic per Dr. Lawrence. 4. Dementia. DW RN Subjective Subjective No CP or SOB. Still on iv Abx. Troponin mildly elevated but no CP. RN at bedside. Objective Last 24 Hour Vital Signs Date Time Temp Pulse Resp B/P (MAP) Pulse Ox O2 Delivery O2 Flow Rate FiO2 11/04/19 10:12 68 150/77 11/04/19 10:11 150/77 11/04/19 09:01 98 Nasal Cannula 2.0 28 11/04/19 08:24 75 11/04/19 08:22 Nasal Cannula 2.0 11/04/19 08:00 97.9 68 17 150/77 (101) 95 11/04/19 04:00 98.5 71 17 136/86 (103) 95 11/04/19 04:00 63 11/04/19 00:00 98.7 67 17 145/83 (103) 95 11/04/19 00:00 65 11/03/19 21:19 75 142/78 11/03/19 21:00 Nasal Cannula 2.0 Nasal Cannula 2.0 11/03/19 20:00 99.0 75 19 142/78 (99) 95 11/03/19 20:00 77 11/03/19 19:46 97 Nasal Cannula 2.0 28 11/03/19 16:00 98.3 71 20 132/73 (92) 96 11/03/19 16:00 70 11/03/19 12:00 67 11/03/19 12:00 98.1 82 20 148/69 (95) 94 Intake and Output 11/03/19 11/04/19 19:00 07:00 Output Total 400 ml 700 ml Balance -400 ml -700 ml Output Urine Total 400 ml 700 ml # Voids 1 Laboratory Tests Test 11/04/19 06:05 White Blood Count 5.1 K/UL (4.8-10.8) Red Blood Count 3.93 M/UL (4.20-5.40) L Hemoglobin 12.4 G/DL (12.0-16.0) Hematocrit 35.7 % (37.0-47.0) L Mean Corpuscular Volume 91 FL (80-99) Mean Corpuscular Hemoglobin 31.7 PG (27.0-31.0) H Mean Corpuscular Hemoglobin Concent 34.9 G/DL (32.0-36.0) Red Cell Distribution Width 10.9 % (11.6-14.8) L Platelet Count 284 K/UL (150-450) Mean Platelet Volume 5.6 FL (6.5-10.1) L Neutrophils (%) (Auto) 53.4 % (45.0-75.0) Lymphocytes (%) (Auto) 28.8 % (20.0-45.0) Monocytes (%) (Auto) 16.7 % (1.0-10.0) H Eosinophils (%) (Auto) 0.5 % (0.0-3.0) Basophils (%) (Auto) 0.7 % (0.0-2.0) Sodium Level 147 MMOL/L (136-145) H Potassium Level 2.5 MMOL/L (3.5-5.1) *L Chloride Level 108 MMOL/L (98-107) H Carbon Dioxide Level 34 MMOL/L (21-32) H Anion Gap 5 mmol/L (5-15) Blood Urea Nitrogen 13 mg/dL (7-18) Creatinine 0.6 MG/DL (0.55-1.30) Estimat Glomerular Filtration Rate mL/min (>60) Glucose Level 147 MG/DL (74-106) H Hemoglobin A1c 6.9 % (4.3-6.0) H Calcium Level 8.1 MG/DL (8.5-10.1) L Pro-B-Type Natriuretic Peptide 1523 pg/mL (0-125) H Objective HEAD AND NECK: No JVD. LUNGS: Decreased breath sounds. CARDIOVASCULAR: Regular S1 and S2 with no gallop. ABDOMEN: Soft. EXTREMITIES: 1+ pitting edema. Hiram Fraga MD Nov 04, 2019 10:34
--- NOTE | 2019-11-04 10:48 | NUR ---
CASE MANAGEMENT: REVIEW SI:PNEUMONIA NSTEMI 97.9 68 17 150/77 NC 2L 98% K 2.5 CL- 108 CO2 34 GLU 147 HGBA1C 6.9 BNP 1523 MYCOPLASMA PNEUMON IgG ~PEND M.pneumoniae IgM TITER~ PEND IS:IV FLAGYL Q8H K-DUR 60 PO X1 LOPRESSOR 25 PO Q12H ZYPREXA 5 PO QHS HEP SUBQ Q12H ZITHROMAX IV Q24H ROCEPHIN 1GM IV Q24H EC ASA 81 PO QD LIPITOR 40MG PO QD PRINIVIL 20 MG PO QD NEB TX Q4H PRN DILAUDID IV Q4H ROBITUSSIN 100 MG Q4H PRN CXR
[2019-11-04] MEDS ORDERED: FUROSEMIDE40 MG ORAL (11:11)
[2019-11-04] MEDS ORDERED: LOPRESSOR25 M1 ORAL (11:11)
[2019-11-04] MEDS ORDERED: MUCINEX600 MG ORAL (11:11)
[2019-11-04] MEDS ORDERED: LIPITOR20 MG ORAL (11:11)
[2019-11-04] MEDS ORDERED: IPRATROPIU0.2 MG/1 M HHN (11:11)
[2019-11-04] MEDS ORDERED: COLACE100 MG ORAL (11:11)
[2019-11-04] MEDS ORDERED: ASPIRIN EC81 MG ORAL (11:11)
[2019-11-04] MEDS ORDERED: MIRALAX119 GM ORAL (11:11)
[2019-11-04] MEDS ORDERED: HEPARIN SO5000 UNIT2 SUBQ (11:11)
[2019-11-04] MEDS ORDERED: GUAIFENESI100 MG/5 M ORAL (11:11)
[2019-11-04] MEDS ORDERED: PRINIVIL20 MG ORAL (11:11)
[2019-11-04] MEDS ORDERED: K-TAB ER20 MEQ ORAL (11:11)
[2019-11-04] MEDS ORDERED: ACETAMINOPHEN325 M1 ORAL (11:11)
[2019-11-04] MEDS ORDERED: OLANZAPINE5 MG ORAL (11:11)
--- NOTE | 2019-11-04 11:28 | Diagnostic Imaging Report ---
Indication: Cough Comparison: 11/02/2019 A single view chest radiograph was obtained. Findings: Small bilateral pleural effusions are present. Cardiomegaly is present. Pulmonary vascular congestion suspected. In general this appears improved from the prior occasion. IMPRESSION: Mild pulmonary vascular congestion. There is probable interval improvement since the last study in this regard.
[2019-11-04 12:00] VITALS: BP 143/79
--- NOTE | 2019-11-04 12:08 | Discharge Summary ---
Discharge Summary Hospital Course Date of Admission Oct 31, 2019 at 11:50 Date of Discharge 11/04/2019 Admitting Diagnosis pneumonia HPI Ewelina Ann is a 84 year old female who was admitted on Oct 31, 2019 at 11: 50 for Pneumonia Consultations Cardiology, pulmonology, Infectious disease Hospital Course 84-year-old female with history of Alzheimer's dementia presents from home with cough and respiratory illness. She was found to have sepsis secondary to community-acquired pneumonia versus UTI, although UA is not impressive. #Sepsis secondary to community acquired pneumonia versus UTI telemetry IV ceftriaxone, azithromycin, add Flagyl for anaerobic coverage. On discharge will continue another 5 days of ceftriaxone and flagyl Stop IV fluids Follow-up blood cultures Tylenol for fever ID consult, recs appreciated Pulmonary consult with Dr. Eddie Cardoso #Fluid overload. diastolic dysfunction Trial of IV diuresis lasix 20 mg iv bid, switch to oral lasix 40 mg daily #VIOLET, prerenal azotemia- resolved Monitor renal function after hydration, avoid nephrotoxic medications. Renal consult if creatinine does not improve #Mild rhabdomyolysis-resolved Trend CK, will have to stop IVF due to congestion, CK normal now #nstemi #Diastolic CHF- acute exacerbation continue b erik, statin, ASA, add lisinopril echo normal ef, diastolic dysfunction, mild mitral regurg, moderate pulmonary htn, TR Cardiology consult, Dr. nair #Hypokalemia Replace potassium, check magnesium, normal Add KCL 40 mg daily #Multiple rib fractures Pain control Stable #Advance dementia Zyprexa 5 mg at night VTE prophylaxis: Heparin subcu GI prophylaxis: None indicated CODE STATUS: Full code. This was discussed at length with daughter on the phone. Basically they would want her mom to be full code, attempt resuscitation however if she would not have a meaningful chance of survival to withdraw care. She will come in and fill out a POLST Speech evaluation PT--> SNF, accepted to [facility] Today on exam she is in no distress, lung cta bl CXR: improved vascular congestion I spent 40 minutes on this encounter. Greater than 50% spent on counseling care portion. Plan of care discussed with consultants, RN and patient's daughter Mojgan. Time of note may not reflect time of encounter Discharge Medications New Medications: Ceftriaxone Na/Dextrose,Iso (Ceftriaxone 1 Gm Piggyback) 1 Gm/50 Ml Froz.piggy 1 GM IV DAILY for 5 Days, #5 BAG Metronidazole* (Flagyl*) 500 Mg Tablet 500 MG ORAL EVERY 8 HOURS for 5 Days, #15 TAB Acetaminophen* (Acetaminophen 325MG Tablet*) 325 Mg Tablet 650 MG ORAL Q4H PRN for 10 Days, #10 TAB Acetaminophen* (Acetaminophen 325MG Tablet*) 325 Mg Tablet 650 MG ORAL Q4H PRN for 10 Days, #10 TAB Aspirin Ec* (Aspirin Ec*) 81 Mg Tablet.dr 81 MG ORAL DAILY for 10 Days, #10 TAB Atorvastatin Calcium* (Lipitor*) 20 Mg Tablet 40 MG ORAL DAILY for 10 Days, #10 TAB Docusate Sodium* (Colace*) 100 Mg Capsule 100 MG ORAL EVERY 12 HOURS for 10 Days, #10 CAP Furosemide* (Lasix*) 40 Mg Tablet 40 MG ORAL DAILY for 10 Days, #10 TAB Guaifenesin (Mucinex) 600 Mg Tab.er.12h 600 MG ORAL TWICE A DAY for 5 Days, #10 TAB Guaifenesin* (Guaifenesin*) 100 Mg/5 Ml Liquid 100 MG ORAL Q4H PRN for 10 Days, #118 ML Heparin Sod (Porcine) (Heparin Sodium*) 5 000/1 Ml Vial 5000 UNITS SUBQ EVERY 12 HOURS for 10 Days, #1 VIAL Ipratropium [place] 0.5MG/2.5ML (Ipratropium [place] 0.5MG/2.5ML) 0.2 Mg/1 Ml Solution 500 MCG HHN Q4H PRN for 10 Days, #1 EA Lisinopril* (Prinivil*) 20 Mg Tablet 20 MG ORAL DAILY for 10 Days, #10 TAB Metoprolol Tartrate (Metoprolol Tartrate) 25 Mg Tablet 25 MG ORAL Q12HR for 10 Days, #20 TAB Olanzapine (Olanzapine) 5 Mg Tablet 5 MG ORAL QHS for 10 Days, #10 TAB Polyethylene Glycol 3350 (Miralax) 119 Gm Powder 17 GM ORAL DAILYPRN PRN for 10 Days, #765 GM Potassium Chloride (K-Tab ER) 20 Meq Tablet.er 40 MEQ ORAL DAILY for 10 Days, #10 TAB Discharge Condition Upon Discharge: stable Discharge Disposition Patient was discharged to SNF: [facility] Discharge Diagnoses: (1) Sepsis (2) Pneumonia involving right lung (3) NSTEMI (non-ST elevated myocardial infarction) (4) Diastolic CHF (5) Pleural effusion, left (6) Right upper lobe pneumonia (7) Right lower lobe pneumonia (8) Advanced dementia (9) Pulmonary hypertension (10) Ribs, multiple fractures (11) Rhabdomyolysis (12) Hypokalemia M[address] [facility] M.D. Nov 04, 2019 12:08
[2019-11-04] MEDS ORDERED: METRONIDAZOLE500 MG ORAL (12:09)
[2019-11-04] MEDS ORDERED: CEFTRIAXON1 GM/50 ML IV (12:09)
--- NOTE | 2019-11-04 12:41 | NUR ---
NURSE NOTES: Called report to ROLF Pichardo at [facility] endorsed plan of care and all abx medications to continue
--- NOTE | 2019-11-04 16:05 | NUR ---
NURSE NOTES: Pt discharged to [facility], all belongings given to pt's daughter, IV intact as pt will continue IV abx at SNF, ID band removed, pt taken by ambulance, tele box returned, pt stable for discharge.
[2019-11-05] MEDS ORDERED: Furosemide 40mg tab ORAL SCH (09:00)
--- NOTE | 2019-11-07 16:57 | NUR ---
*-* INSURANCE *-* DISCHARGE SUMMARY HAS BEEN FAXED TO: [facility] #[phone] fax#[phone]
== END 2019-11-04 16:06 | DRG 871 ==
LOC: EDBD 19:14 → EMR 19:50 → EDBEDREQ 10-31 11:28 → 2E 10-31 11:50
DX: A41.9 Sepsis, unspecified organism (principal); J18.9 Pneumonia, unspecified organism; I21.A1 Myocardial infarction type 2; I50.33 Acute on chronic diastolic (congestive) heart failure; S22.41XA Multiple fractures of ribs, right side, initial encounter for closed fracture; N17.9 Acute kidney failure, unspecified; M62.82 Rhabdomyolysis; E87.6 Hypokalemia; I27.20 Pulmonary hypertension, unspecified; X58.XXXA Exposure to other specified factors, initial encounter; D64.9 Anemia, unspecified
CPT/HCPCS: 36415; 71045; 80048; 80053; 81003; 82164; 82550; 83036; 83605; 83690; 83735; 83880; 84484; 85007; 85025; 85610; 86738; 93005; 93306; 96361; 96365; 96368; 99284; 99285; J7030; J8499